=== PATIENT | female | born 1955 | race Caucasian/White ===

== ENCOUNTER 2018-08-08 18:27 | Inpatient (IN) | payer OTHER ==
[~2018-08-08] VITALS: Ht 170.2 cm; Wt 74.0 kg
[2018-08-08 18:58] LABS: APPEARANCE,URINE Clear (CLEAR); BILIRUBIN,URINE Moderate (NEGATIVE); COLOR,URINE Dark Yellow (YELLOW); GLUCOSE, URINE (UA) Negative (NEGATIVE); KETONES,URINE Negative (NEGATIVE); LEUKOCYTE ESTERASE ,URINE Trace (NEGATIVE); NITRATE,URINE Negative (NEGATIVE); OCCULT BLOOD,URINE Negative (NEGATIVE); PH,URINE 5.5 (5.0-8.0); PROTEIN,URINE Negative (NEGATIVE)
[2018-08-08 18:59] LABS: BASOPHILS % (AUTO) 0.8 % (0.0-5.0); EOSINOPHILS % (AUTO) 1.2 % (0.0-8.0); HEMATOCRIT 35.4 % (36-48); LYMPHOCYTES % (AUTO) 54.5 % (21.0-51.0); MEAN CORPUSCULAR HEMOGLOBIN 34.2 pg (27.0-33.0); MEAN CORPUSCULAR HGB CONC 34.1 g/dL (32.0-36.0); MEAN CORPUSCULAR VOLUME 100.5 fL (79-99); MONOCYTES % (AUTO) 6.2 % (3.0-13.0); NEUTROPHILS % (AUTO) 37.3 % (40.0-77.0); NUCLEATED RED BLOOD CELLS 0.1 % (0.0-0.19); PLATELET COUNT (AUTO) 173 K/uL (130-400); RED BLOOD CELL COUNT(AUTO) 3.52 MIL/uL (4.00-5.50); RED CELL DISTRIBUTION WIDTH 16.4 % (11.0-15.5); WHITE BLOOD COUNT (AUTO) 7.2 K/uL (4.8-10.8)
[2018-08-08] MEDS ORDERED: ONDANSETRON HCL 4 MG/2 ML VIAL ONE (19:16)
[2018-08-08] MEDS ORDERED: MORPHINE SULFATE 4 MG/1ML SYG ONE ×2 (19:16→19:39)
[2018-08-08 19:21] LABS: CREATININE 0.8 mg/dL (0.5-1.5); POTASSIUM 3.4 mmol/L (3.5-5.1)
[2018-08-08 19:22] LABS: AMYLASE 14 U/L (25-115); LIPASE 165 U/L (114-286)
[2018-08-08 19:23] LABS: INR 1.28 (0.85-1.15); PARTIAL THROMBOPLASTIN TIME 31.5 SEC (26.3-35.5); PROTHROMBIN TIME 13.4 SEC (9.6-11.6)
[2018-08-08 19:26] LABS: ALBUMIN 2.9 g/dL (3.5-5.0); BILIRUBIN,TOTAL 4.5 mg/dL (0.2-1.0); TOTAL PROTEIN, SERUM 7.6 g/dL (6.0-8.3)
[2018-08-08 20:13] LABS: BACTERIA,URINE Moderate /HPF (None Seen); RBC,URINE None Seen /HPF (0-1)
[2018-08-08] MEDS ORDERED: CEFTRIAXONE SODIUM 1 GM ONE (20:14)
[2018-08-08] MEDS ORDERED: FUROSEMIDE 10 MG/ML 2ML VIAL ONE (20:42)
[2018-08-08 21:18] LABS: BASOPHILS % (MANUAL) 1 % (0-2); EOSINOPHILS % (MANUAL) 1 % (1-6); LYMPHOCYTES % (MANUAL) 20 % (22-44); MONOCYTES % (MANUAL) 10 % (2-9); REACTIVE LYMPHOCYTES 4 % (0-0); SEGMENTED NEUTROPHILS % 64 % (40-70)
[2018-08-08 21:19] LABS: MAN.DIFF COMMENT-IMPRESSION MANUAL DIFFERENTIAL; PLATELET MORPHOLOGY COMMENT ADEQUATE
[2018-08-08] MEDS: FUROSEMIDE 10 MG/ML 2ML VIAL IVP SCH (21:30)
[2018-08-08] MEDS ORDERED: MORPHINE SULFATE 2 MG/ML 1ML SYG ONE (22:33)
[2018-08-09 01:30] VITALS: BP 111/67
[2018-08-09] MEDS ORDERED: SUCR1TAB2 PO (02:06)
[2018-08-09] MEDS ORDERED: CYAN250010 PO (02:06)
[2018-08-09] MEDS ORDERED: MILK500C PO (02:06)
[2018-08-09] MEDS ORDERED: HYOS-28 PO (02:06)
[2018-08-09] MEDS ORDERED: TRAZ-185 PO (02:06)
[2018-08-09] MEDS: MORPHINE SULFATE 2 MG/ML 1ML SYG IVP PRN ×3 (02:55→11:59)
[2018-08-09 04:00] VITALS: BP 113/72
[2018-08-09 08:00] VITALS: BP 107/50
[2018-08-09] MEDS ORDERED: ALBUMIN (HUMAN) 25% 200 ML IV SCH (10:00)
[2018-08-09] MEDS: CEFTRIAXONE SODIUM 1 GM IVP SCH (10:10)
[2018-08-09] MEDS: FUROSEMIDE 10 MG/ML 2ML VIAL IVP SCH ×2 (10:10→20:12)
[2018-08-09 10:40] LABS: INR 1.27 (0.85-1.15); PROTHROMBIN TIME 13.3 SEC (9.6-11.6)
[2018-08-09] MEDS ORDERED: LIDOCAINE HCL 1% 20 ML VIAL ONE (11:19)
--- NOTE | 2018-08-09 11:30 | NUR ---
NOTE PARACENTESIS PT WAS BROUGHT FOR A PARACENTESIS. RIGHT LATERAL ABDOMINAL AREA HAS BEEN DRAPED USING STERILE PROCEDURE. DR WEST THEN PROCEEDED IN INSERTING A 5FRENCH CATHETER USING STERILE TECHNIQUE. CLOUDY YELLOW FLUID DRAINING TO CANISTER, WITH A TOTAL OF 1150CC WAS REMOVED. PT TOLERATED WELL, NO COMPLAINS OF PAIN TO SITE AT THIS TIME. PUNCTURE SITE WAS COVERED WITH 4X4 AND OPSITE. PT WAS THEN SENT TO HER ROOM VIA WHEELCHAIR. Addendum: 08/09/18 at 1404 by MILDRED BRUMFIELD RN RN FLUID SPECIMEN HAS BEEN SENT TO LAB FOR C/S, CELL COUNT AND CYTOLOGY.
[2018-08-09] MEDS ORDERED: HYDROMORPHONE 4MG/ML 1ML VIAL IVP PRN (14:15)
[2018-08-09] MEDS ORDERED: ZOLPIDEM TARTRATE 5 MG TAB PO PRN (14:30)
--- NOTE | 2018-08-09 14:37 | NUR ---
INITIAL: Met with pt this afternoon to discuss dcp. Pt states that she lives w her spouse. She is an [place] citizen and states lives 6months in [facility], 3months in [facility] and 3 months in [place]. Pt states that she is independent w ambulation and ADLs. She does not have any DME or services. Pt pt she feels safe and comfortable to return home at al. Addendum: 08/09/18 at 1446 by JOSE HERNANDEZ Amended: Links added.
[2018-08-09] MEDS: HYDROMORPHONE HCL 2 MG/ML VIAL IVP PRN ×2 (14:46→20:16)
[2018-08-09 14:52] LABS: ALBUMIN,BODY FLUID 0.6 g/dL
[2018-08-09 15:37] LABS: APPEARANCE BODY FLUID CLEAR (CLEAR); COLOR,BODY FLUID YELLOW (LT YELLOW); SPECIMENTYPE,BODY FLUID ASCITES; TOTAL VOLUME,BODY FLUID 1150 mL
[2018-08-09 15:38] LABS: BODY FLUID RBC 270 /cu. mm.; BODY FLUID WBC 133 /cu. mm.
[2018-08-09 16:00] VITALS: BP 101/60
[2018-08-09 16:32] LABS: BF LYMPHOCYTE 54 %; BF MONOCYTE 18 %; BF OTHER CELLS 1
--- NOTE | 2018-08-09 18:42 | NUR ---
fall as walking our of room 318, jose maria Hare walked into room 315 because restroom emergency light was on. patient found face down, right side. pt denies any shortness of breath and/or pain to site. MD Arevalo notified. ordered hip xray. vitals are 118/63, 82 HR, 93% on 4L, afebrile 98.6 Addendum: 08/09/18 at 1850 by GALINA BRUSH RN RN pt states that she slipped while walking out of the restroom on the lip of the door panel. states socks are very slippery
[2018-08-09 20:00] VITALS: BP 110/61
--- NOTE | 2018-08-09 20:00 | NUR ---
ASSESS SHIFT ASSESSMENT DONE, PLEASE REFER TO CHART. PT CLAIMS OF ABDOMINAL PAINS. DUE MEDS ADMINISTERED, TOLERATED WELL, DILAUDID IV GIVEN FOR PAINS. RE-ITERATED FALL PRECAUTIONS. PT VERBALIZES UNDERSTANDING. CALL LIGHT WITHIN REACH. WILL MONITOR CLOSELY. Addendum: 08/10/18 at 0234 by NATALY COBOS RN RN Amended: Links added.
[2018-08-10] VITALS (16 sets, daily range): BP systolic 94–130; BP diastolic 54–91
--- NOTE | 2018-08-10 02:00 | NUR ---
ROUNDS PT FAIRLY ASLEEP WITH RESPIRATIONS EVEN AND UNLABORED. NO NOTED DISTRESS. KEPT UNDISTURBED FOR NOW. WILL CONTINUE TO MONITOR.
[2018-08-10] MEDS: HYDROMORPHONE HCL 2 MG/ML VIAL IVP PRN ×4 (06:40→22:07)
--- NOTE | 2018-08-10 06:40 | NUR ---
PAIN PT CALLS FOR PAIN MEDICATION. CLAIMS OF ABDOMINAL PAINS. MEDICATED WITH DILAUDID IV. RE-ITERATED FALL PRECAUTIONS. CALL LIGHT WITHIN REACH. WILL RE-ASSESS PT. FOR MORE CARE.
[2018-08-10] MEDS ORDERED: POTASSIUM CHLORIDE 10% ELIXIR 20 MEQ/15 ML UDCUP PO PRN (07:45)
[2018-08-10] MEDS ORDERED: ONDANSETRON HCL 4 MG/2 ML VIAL ONE ×2 (07:58→09:54)
[2018-08-10] MEDS ORDERED: ONDANSETRON HCL MDV 20ML 2 MG/ML VIAL IVP PRN (08:00)
[2018-08-10] MEDS: CEFTRIAXONE SODIUM 1 GM IVP SCH (08:02)
[2018-08-10] MEDS: FUROSEMIDE 10 MG/ML 2ML VIAL IVP SCH ×2 (08:05→20:09)
[2018-08-10 08:19] LABS: CREATININE 0.8 mg/dL (0.5-1.5); MAGNESIUM 1.4 mg/dL (1.80-2.40)
[2018-08-10 08:29] LABS: HEMATOCRIT 31.7 % (36-48); MEAN CORPUSCULAR HEMOGLOBIN 35.3 pg (27.0-33.0); MEAN CORPUSCULAR HGB CONC 35.1 g/dL (32.0-36.0); MEAN CORPUSCULAR VOLUME 100.4 fL (79-99); NUCLEATED RED BLOOD CELLS 0.1 % (0.0-0.19); PLATELET COUNT (AUTO) 138 K/uL (130-400); RED BLOOD CELL COUNT(AUTO) 3.16 MIL/uL (4.00-5.50); RED CELL DISTRIBUTION WIDTH 16.2 % (11.0-15.5); WHITE BLOOD COUNT (AUTO) 6.5 K/uL (4.8-10.8)
[2018-08-10] MEDS: PANTOPRAZOLE 40 MG/VIAL IVP SCH (08:39)
[2018-08-10] MEDS ORDERED: PANTOPRAZOLE SODIUM 40 MG TABLET.DR PO SCH (09:00)
[2018-08-10 09:09] LABS: EOSINOPHILS % (MANUAL) 5 % (1-6); LYMPHOCYTES % (MANUAL) 46 % (22-44); MAN.DIFF COMMENT-IMPRESSION MANUAL DIFFERENTIAL; MONOCYTES % (MANUAL) 9 % (2-9); PLATELET MORPHOLOGY COMMENT ADEQUATE; SEGMENTED NEUTROPHILS % 40 % (40-70)
[2018-08-10] MEDS: POTASSIUM CHLORIDE 20MEQ/100ML 100 ML IV PRN ×3 (09:57→22:07)
[2018-08-10] MEDS ORDERED: MIDAZOLAM HCL 1 MG/ML 2ML VIAL ONE ×2 (10:42→10:51)
[2018-08-10] MEDS ORDERED: MEPERIDINE-PF 50 MG/ML SYG ONE (10:42)
[2018-08-10] MEDS: ONDANSETRON HCL 4 MG/2 ML VIAL IVP PRN ×2 (13:36→18:16)
[2018-08-10] MEDS: MAGNESIUM 2GM PREMIX 50ML 50 ML IV PRN (20:10)
[2018-08-10] MEDS: LIDOCAINE HCL-MPF 1% 2ML VIAL IVP PRN (22:07)
--- NOTE | 2018-08-10 22:07 | NUR ---
N/V PT AWAKENED AND ASKED TO USE BSC. PCP IN TO ASSIST PT. PT STARTED HAVING DRY HEAVING SOON SHE SHE GOT OUT OF BED. PT USED BSC THEN ASSISTED BACK TO BED. PT COMPLAINTS OF ABDOMINAL PAINS AND IS STILL HAVING DRY HEAVES. MEDICATED WITH DILAUDID IV. KEPT COMFORTABLE IN BED WITH HOB ELEVATED. MAGNESIUM IV COMPLETED. STARTED IV POTASSIUM INFUSION PT UNABLE TO TAKE PO AT THIS TIME. WILL RE-ASSESS PT.
[2018-08-11] VITALS (7 sets, daily range): BP systolic 115–133; BP diastolic 52–84
[2018-08-11] MEDS: ONDANSETRON HCL 4 MG/2 ML VIAL IVP PRN ×3 (01:43→19:48)
--- NOTE | 2018-08-11 01:45 | NUR ---
N/V PT STARTED TO HAVE DRY HEAVING AGAIN. CLAIMS OF ABDOMINAL CRAMPING. MEDICATED WITH ZOFRAN IV. ASSISTED TO THE BSC AND NOTED TO BE VERY WEAK. RE-ITERATED ON FALL PRECAUTIONS. PT VERBALIZES UNDERSTANDING. WILL RE-ASSESS PT.
[2018-08-11] MEDS: HYDROMORPHONE HCL 2 MG/ML VIAL IVP PRN ×5 (02:26→23:47)
[2018-08-11 05:57] LABS: ALBUMIN 2.7 g/dL (3.5-5.0); BILIRUBIN,TOTAL 3.3 mg/dL (0.2-1.0); CREATININE 0.7 mg/dL (0.5-1.5); MAGNESIUM 1.8 mg/dL (1.80-2.40); POTASSIUM 3.4 mmol/L (3.5-5.1); TOTAL PROTEIN, SERUM 7.5 g/dL (6.0-8.3)
[2018-08-11] MEDS: MAGNESIUM 2GM PREMIX 50ML 50 ML IV PRN (06:40)
--- NOTE | 2018-08-11 07:57 | NUR ---
PAGED PT STILL HAVING DRY HEAVING WHEN AWAKE AND IS UP IN BED. PT ASKED IF MD WILL MAKE ROUND TODAY SINCE ACCORDING TO HER SHE HAS NOT SEEN HER PRIMARY MD YET. PAGED DR NUNEZ VIA ANSWERING SERVICE. AWAITING CALL BACK. ENDORSED TO AM SHIFT FOR MORE CARE AND MANAGEMENT.
--- NOTE | 2018-08-11 08:45 | NUR ---
DR. NUNEZ HERE TO SEE PATIENT. INFORMED THAT PATIENT WAS STILL NAUSEA DRY HEAVING. NEW ORDERS ENTERED.
[2018-08-11] MEDS ORDERED: ONDANSETRON HCL MDV 20ML 2 MG/ML VIAL IVP PRN (09:30)
[2018-08-11] MEDS: PANTOPRAZOLE 40 MG/VIAL IVP SCH (10:25)
[2018-08-11] MEDS: CEFTRIAXONE SODIUM 1 GM IVP SCH (10:25)
[2018-08-11] MEDS: FUROSEMIDE 10 MG/ML 2ML VIAL IVP SCH ×2 (10:26→19:49)
[2018-08-11] MEDS: POTASSIUM CHLORIDE 20MEQ/100ML 100 ML IV PRN (10:40)
[2018-08-11] MEDS: LIDOCAINE HCL-MPF 1% 2ML VIAL IVP PRN (10:41)
--- NOTE | 2018-08-11 11:16 | NUR ---
DR. BRADSHAW HERE TO SEE PATIENT. NEW ORDERS FOR ULTRASOUND GIVEN. INFORMED PATIENT
[2018-08-11] MEDS ORDERED: BISACODYL 10 MG SUPP.RECT RC PRN (11:45)
--- NOTE | 2018-08-11 15:00 | NUR ---
NOTIFIED DR. NUNEZ REGARDING PATIENT WAS STILL WITH NAUSEA. MADE AWARE OF DR. HAJI RECOMMENDATIONS. AWAITING CALL BACK FOR PATIENT TO HAVE IV FLUIDS FOR HYDRATION AND FURTHER ORDERS/
--- NOTE | 2018-08-11 15:15 | NUR ---
RD Notification Patient on clear liquid diet with nausea and vomiting upon visit. Patient received nausea medication as per EMR. Pending U/S as per patient. Patient with request of Korean ice at meal times. Pending diet education for new onset cirrhosis d/t patient with nausea and vomiting upon visit. Patient LBM 08/10/18. Patient monitored labs: K 43.4, Cl 98, BUN 4, CO2 34, Glu 107, T.Bili 3.3, AST 44, Alb 2.7. RD to continue to monitor. Please notify RD as nutritional concerns arise. Thank you. Addendum: 08/11/18 at [address] Amended: Links added.
[2018-08-11] MEDS: SENNOSIDES 8.6 MG TABLET PO SCH (19:49)
--- NOTE | 2018-08-11 19:50 | NUR ---
ASSESS SHIFT ASSESSMENT DONE, PLEASE REFER TO CHART. PT COMPLAINTS OF ABDOMINAL PAINS AND NAUSEA. DUE MEDS ADMINISTERED AND DILAUDID AND ZOFRAN IV GIVEN FOR NAUSEA AND PAINS. KEPT RESTED AND COMFORTABLE IN BED. CALL LIGHT WITHIN REACH. WILL RE-ASSESS PT. Addendum: 08/12/18 at 0122 by NATALY COBOS RN RN Amended: Links added.
--- NOTE | 2018-08-11 23:35 | NUR ---
PT COMPLAINTS OF ABDOMINAL PAINS, NAUSEA WITH DRY HEAVING AND GENERALIZED ITCHING. PAGED DR NUNEZ VIA ANSWERING SERVICE. WAS ABLE TO ANSWER BACK AND REFERRED PT'S CONDITION. NEW MED ORDERS GIVEN,PLEASE REFER TO CPOE. . WILL MEDICATE PT.
[2018-08-11] MEDS ORDERED: METOCLOPRAMIDE 10 MG/2 ML VIAL ONE (23:40)
[2018-08-11] MEDS ORDERED: DiphenhydrAMINE HCL 50 MG/ML VIAL ONE (23:40)
[2018-08-11] MEDS ORDERED: DiphenhydrAMINE HCL 50 MG/ML VIAL IV PRN (23:45)
[2018-08-11] MEDS ORDERED: METOCLOPRAMIDE 10 MG/2 ML VIAL IVP SCH (23:45)
[2018-08-11] MEDS: METOCLOPRAMIDE 10 MG/2 ML VIAL IVP SCH (23:50)
--- NOTE | 2018-08-12 02:00 | NUR ---
ROUNDS PT RESTING WELL, FAIRLY ASLEEP WITH RESPIRATIONS EVEN AND UNLABORED. NO NOTED DISTRESS. KEPT UNDISTURBED FOR NOW. WILL MONITOR CLOSELY.
[2018-08-12 03:05] VITALS: BP 114/55
[2018-08-12 05:02] LABS: HEMATOCRIT 30.7 % (36-48); MEAN CORPUSCULAR HEMOGLOBIN 34.4 pg (27.0-33.0); MEAN CORPUSCULAR HGB CONC 34.7 g/dL (32.0-36.0); NUCLEATED RED BLOOD CELLS 0.1 % (0.0-0.19); PLATELET COUNT (AUTO) 148 K/uL (130-400); RED CELL DISTRIBUTION WIDTH 15.5 % (11.0-15.5); WHITE BLOOD COUNT (AUTO) 15.4 K/uL (4.8-10.8)
[2018-08-12] MEDS: METOCLOPRAMIDE 10 MG/2 ML VIAL IVP SCH ×4 (05:29→23:33)
[2018-08-12 05:30] LABS: ALBUMIN 2.7 g/dL (3.5-5.0); BILIRUBIN,TOTAL 3.6 mg/dL (0.2-1.0); CREATININE 0.7 mg/dL (0.5-1.5); MAGNESIUM 1.5 mg/dL (1.80-2.40); POTASSIUM 3.3 mmol/L (3.5-5.1); TOTAL PROTEIN, SERUM 6.9 g/dL (6.0-8.3)
[2018-08-12] MEDS: POTASSIUM CHLORIDE 20 MEQ ERTAB PO PRN (05:40)
[2018-08-12] MEDS: MAGNESIUM 2GM PREMIX 50ML 50 ML IV PRN (05:40)
--- NOTE | 2018-08-12 05:40 | NUR ---
KCL/MG PT'S LAB RESULTS IN AND STILL WITH LOW POTASSIUM AND MAGNESIUM. STARTED ON MG INFUSION IV AND PO POTASSIUM. KEPT RESTED IN BED. CALL LIGHT WITHIN REACH. REITERATED FALL PRECAUTIONS. FOR MORE CARE.
[2018-08-12 08:06] VITALS: BP 111/63
[2018-08-12 08:17] LABS: HEPATITIS A ANTIBODY IGM Negative (Negative); HEPATITIS B CORE IGM Negative (Negative)
[2018-08-12] MEDS: PANTOPRAZOLE 40 MG/VIAL IVP SCH (09:23)
[2018-08-12] MEDS: FUROSEMIDE 10 MG/ML 2ML VIAL IVP SCH ×2 (09:23→20:43)
[2018-08-12] MEDS: CEFTRIAXONE SODIUM 1 GM IVP SCH (09:23)
[2018-08-12 12:00] VITALS: BP 123/65
[2018-08-12] MEDS: LIDOCAINE HCL-MPF 1% 2ML VIAL IVP PRN (12:05)
[2018-08-12] MEDS: POTASSIUM CHLORIDE 20MEQ/100ML 100 ML IV PRN (12:06)
[2018-08-12] MEDS: ONDANSETRON HCL 4 MG/2 ML VIAL IVP PRN (12:08)
--- NOTE | 2018-08-12 14:57 | NUR ---
DR. NUNEZ HAD NOT ROUNDED AND PATIENT MADE AWARE.
[2018-08-12 16:16] VITALS: BP 108/54
--- NOTE | 2018-08-12 17:30 | NUR ---
AMBULATION/OXYGENATION PT O2 HAS BEEN LOW TODAY. PRIMARY NURSE ENCOURAGING PT TO BE UP MORE AND WEAING O2. CM WILL FOLLOW NEEDED . PT STATES THAT WOULD BE WILLING TO GO TO SNF FOR PT IF NEEDED. PT WALKING FREELY W SPOUSE, NO MOBILITY DEFICITS NEEDED
[2018-08-12 19:30] VITALS: BP 102/52
[2018-08-12] MEDS: SENNOSIDES 8.6 MG TABLET PO SCH (20:43)
--- NOTE | 2018-08-12 20:43 | NUR ---
MEDS PT REFUSED SENNA DOSE TONIGHT SHE CLAIMS SHE HAD BEEN HAVING DIARRHEA DURING THE DAY. DUE LASIX DOSE ADMINISTERED. PCP MADE AWARE THAT PT HAD BEEN GIVEN DIURETICS TO ASSIST PT TO THE RESTROOM OR BSC WHEN NEEDED.
[2018-08-12 23:00] VITALS: BP 108/57
--- NOTE | 2018-08-13 02:00 | NUR ---
ROUNDS PT FAIRLY ASLEEP WITH RESPIRATIONS EVEN AND UNLABORED. NO NOTED DISTRESS. KEPT UNDISTURBED FOR NOW.
[2018-08-13 03:00] VITALS: BP 99/67
[2018-08-13 05:18] LABS: HEPATITIS Bs ANTIGEN SCREEN P Negative (Negative)
[2018-08-13] MEDS: METOCLOPRAMIDE 10 MG/2 ML VIAL IVP SCH ×2 (05:26→12:23)
--- NOTE | 2018-08-13 05:38 | NUR ---
ROUNDS PT SLEPT AT INTERVALS. NO CONCERNS VERBALIZED AT THIS TIME. NO DISTRESS NOTED. FOR MORE CARE.
[2018-08-13 06:07] LABS: MAGNESIUM 1.8 mg/dL (1.80-2.40)
[2018-08-13] MEDS: LIDOCAINE HCL-MPF 1% 2ML VIAL IVP PRN (06:42)
[2018-08-13] MEDS: POTASSIUM CHLORIDE 20 MEQ ERTAB PO PRN (06:42)
[2018-08-13] MEDS: POTASSIUM CHLORIDE 20MEQ/100ML 100 ML IV PRN (06:42)
[2018-08-13 08:00] VITALS: BP 144/59
[2018-08-13] MEDS: PANTOPRAZOLE 40 MG/VIAL IVP SCH (09:00)
[2018-08-13] MEDS ORDERED: FAMOTIDINE/PF 20 MG/2 ML VIAL IV SCH (09:00)
[2018-08-13] MEDS: CEFTRIAXONE SODIUM 1 GM IVP SCH (09:49)
[2018-08-13] MEDS: FUROSEMIDE 10 MG/ML 2ML VIAL IVP SCH (09:50)
[2018-08-13 12:00] VITALS: BP 95/63
[2018-08-13 16:00] VITALS: BP 114/73
--- NOTE | 2018-08-13 17:15 | NUR ---
DISCHARGE PATIENT GIVEN DISCHARGE INSTRUCTIONS VIA TEACH BACK. PATIENT TO FOLLOW UP WITH DR. NUNEZ TOMORROW AT 1100 INSTEAD OF 08/28/18. 20G PIV TO LEFT HAND DISCONTINUED, TIP INTACT. NO RX GIVEN. PATIENT STABLE AT THIS TIME.
== END 2018-08-13 17:00 | disposition home or self-care (01) | DRG 441 ==
LOC: EDH 18:27 → EDHIP 20:03 → 3CH 08-09 01:30
PROVIDERS: ADMIT Internal Medicine; ATTEND Internal Medicine
PROC: 0W9G3ZZ Drainage of Peritoneal Cavity, Percutaneous Approach (ICD-10-PCS; principal; 2018-08-10)
PROC: 0DJ08ZZ Inspection of Upper Intestinal Tract, Via Natural or Artificial Opening Endoscopic (ICD-10-PCS; 2018-08-10)
DX: K72.00 Acute and subacute hepatic failure without coma (principal); J96.91 Respiratory failure, unspecified with hypoxia; K65.9 Peritonitis, unspecified; K56.609 Unspecified intestinal obstruction, unspecified as to partial versus complete obstruction; R18.8 Other ascites; I85.10 Secondary esophageal varices without bleeding; K76.6 Portal hypertension; J81.1 Chronic pulmonary edema; K74.60 Unspecified cirrhosis of liver; K29.00 Acute gastritis without bleeding; K72.10 Chronic hepatic failure without coma; Z90.81 Acquired absence of spleen; K31.89 Other diseases of stomach and duodenum; M19.90 Unspecified osteoarthritis, unspecified site; E87.70 Fluid overload, unspecified; E87.6 Hypokalemia; E83.42 Hypomagnesemia; K76.0 Fatty (change of) liver, not elsewhere classified; Z86.010 Personal history of colon polyps; Z90.49 Acquired absence of other specified parts of digestive tract; Z90.710 Acquired absence of both cervix and uterus; Z86.73 Personal history of transient ischemic attack (TIA), and cerebral infarction without residual deficits
CPT/HCPCS: 36415; 43235; 49083; 71045; 73521; 74018; 74176; 80048; 80053; 80074; 81001; 82040; 82042; 82150; 82172; 82247; 82977; 83010; 83516; 83690; 83735; 83883; 84132; 84157; 84460; 84484; 85025; 85027; 85610; 85730; 86706; 86717; 87071; 87205; 87340; 87350; 87520; 88108; 88305; 89051; 93005; 99152; 99153; C9113; G0378; J0696; J1170; J1200; J1940; J2175; J2250; J2270; J2405; J2765; J3475; J3480; J3490; P9046

== ENCOUNTER 2018-08-21 18:30 | Inpatient (IN) | payer OTHER ==
[~2018-08-21] VITALS: Ht 170.2 cm; Wt 60.2 kg
[~2018-08-21 18:30] MED LIST: CYAN250010 PO; ETOMIDATE 2 MG/ML 10 ML VIAL IVP ONE; HYOS-28 PO; MILK500C PO; ROCURONIUM BROMIDE 10MG/1ML 5ML VL IV ONE; SUCR1TAB2 PO; TRAZ-185 PO
[2018-08-21 19:32] LABS: EOSINOPHILS % (AUTO) 0.2 % (0.0-8.0); HEMATOCRIT 35.1 % (36-48); LYMPHOCYTES % (AUTO) 7.6 % (21.0-51.0); MEAN CORPUSCULAR HEMOGLOBIN 33.9 pg (27.0-33.0); MEAN CORPUSCULAR HGB CONC 34.2 g/dL (32.0-36.0); MONOCYTES % (AUTO) 19.7 % (3.0-13.0); NEUTROPHILS % (AUTO) 69.5 % (40.0-77.0); PLATELET COUNT (AUTO) 150 K/uL (130-400); RED BLOOD CELL COUNT(AUTO) 3.55 MIL/uL (4.00-5.50); RED CELL DISTRIBUTION WIDTH 16.1 % (11.0-15.5); WHITE BLOOD COUNT (AUTO) 17.4 K/uL (4.8-10.8)
[2018-08-21] MEDS ORDERED: ONDANSETRON HCL 4 MG/2 ML VIAL ONE (19:32)
[2018-08-21] MEDS ORDERED: MORPHINE SULFATE 4 MG/1ML SYG ONE (19:33)
[2018-08-21 19:42] LABS: CARBON DIOXIDE 34 mmol/L (21-32); CHLORIDE 93 mmol/L (101-111); CREATININE 0.9 mg/dL (0.5-1.5); GLOMERULAR FILTR. RATE CALC 68 mL/min (>60); GLUCOSE,RANDOM 129 mg/dL (70-105); POTASSIUM 3.1 mmol/L (3.5-5.1); SODIUM SERUM 134 mmol/L (136-145); UREA NITROGEN, BLOOD 13 mg/dL (7-18)
[2018-08-21 19:44] LABS: INR 1.52 (0.85-1.15); PARTIAL THROMBOPLASTIN TIME 29.6 SEC (26.3-35.5); PROTHROMBIN TIME 15.8 SEC (9.6-11.6)
[2018-08-21 19:46] LABS: ALANINE AMINOTRANSFERASE 18 U/L (12-78); ALBUMIN 2.7 g/dL (3.5-5.0); AMYLASE 28 U/L (25-115); ASPARTATE AMINOTRANSFERASE 57 U/L (10-37); BILIRUBIN,TOTAL 5.5 mg/dL (0.2-1.0); LIPASE 362 U/L (114-286); TOTAL PROTEIN, SERUM 7.2 g/dL (6.0-8.3)
[2018-08-21 20:24] LABS: CREATINE KINASE, TOTAL 33 U/L (21-232); MYOGLOBIN 21 ng/mL (10-92); TROPONIN I < 0.04 ng/mL (0.00-0.06)
[2018-08-21] MEDS ORDERED: ALBUMIN (HUMAN) 25% 50 ML IV ONE (20:45)
[2018-08-21] MEDS ORDERED: MAGNESIUM OXIDE 400 MG TABLET PO ONE (20:50)
[2018-08-21] MEDS ORDERED: POTASSIUM CHLORIDE 20 MEQ ERTAB PO ONE (20:51)
[2018-08-21] MEDS ORDERED: MORPHINE SULFATE 2 MG/ML 1ML SYG ONE (20:51)
[2018-08-21 21:19] LABS: APPEARANCE,URINE Cloudy (CLEAR); BILIRUBIN,URINE Moderate (NEGATIVE); COLOR,URINE Dark Yellow (YELLOW); GLUCOSE, URINE (UA) Negative (NEGATIVE); KETONES,URINE Trace mg/dL (NEGATIVE); LEUKOCYTE ESTERASE ,URINE Trace (NEGATIVE); NITRATE,URINE Negative (NEGATIVE); OCCULT BLOOD,URINE Negative (NEGATIVE); PROTEIN,URINE Negative (NEGATIVE)
[2018-08-21 21:37] LABS: BACTERIA,URINE Many /HPF (None Seen); MUCUS,URINE Moderate LPF (None Seen); RBC,URINE None Seen /HPF (0-1); SQUAMOUS EPITHELIAL CELL,UR 0-2 /HPF (0-2); WBC,URINE 0-1 /HPF (0-1)
[2018-08-21] MEDS ORDERED: LACTULOSE 20 GM/30 ML UDCUP ONE (22:41)
[2018-08-21] MEDS ORDERED: LEVOFLOXACIN 500 MG/D5W 100 ML 100 ML ONE (22:42)
[2018-08-21] MEDS ORDERED: PANTOPRAZOLE SODIUM 40 MG TABLET.DR PO ONE (22:42)
[2018-08-21] MEDS ORDERED: FUROSEMIDE 10 MG/ML 2ML VIAL ONE (23:10)
[2018-08-21 23:24] LABS: ABG HCO3 30.7 mmol/L (21.0-28.0); ABG OXYGEN SATURATION 94.1 % (95.0-99.0); ABG PCO2 33 mmHg (32-45)
[2018-08-22] VITALS (12 sets, daily range): BP systolic 95–127; BP diastolic 40–66
[2018-08-22] MEDS ORDERED: ACETAMINOPHEN 325 MG TAB PO PRN (00:30)
[2018-08-22] MEDS: FUROSEMIDE 10 MG/ML 2ML VIAL IVP SCH (00:30)
[2018-08-22] MEDS ORDERED: FURO20TA4 PO (00:51)
[2018-08-22] MEDS ORDERED: LACT10SO PO (00:51)
[2018-08-22] MEDS ORDERED: SPIR50TA5 PO (00:51)
[2018-08-22] MEDS: SODIUM CHLORIDE 0.9% 1000ML 1,000 ML IV SCH ×2 (00:55→14:05)
[2018-08-22] MEDS: MORPHINE SULFATE 2 MG/ML 1ML SYG IVP PRN ×5 (00:55→18:41)
[2018-08-22] MEDS: IPRATROPIUM/ALBUTEROL SULFATE 3 ML SOLUTION IH SCH ×5 (01:47→22:00)
[2018-08-22] MEDS: ONDANSETRON HCL 4 MG/2 ML VIAL IVP PRN ×2 (09:38→18:40)
[2018-08-22] MEDS: PANTOPRAZOLE SODIUM 40 MG TABLET.DR PO SCH ×2 (09:39→21:16)
[2018-08-22] MEDS: LACTULOSE 20 GM/30 ML UDCUP PO SCH ×2 (09:39→21:16)
[2018-08-22] MEDS ORDERED: GADODIAMIDE 10 MMOL/20 ML VIAL IV ONE (11:11)
[2018-08-22] MEDS: AZTREONAM 2 GM VIAL IVP SCH ×2 (11:30→21:16)
[2018-08-22] MEDS ORDERED: LORAZEPAM 2 MG/ML 1 ML VIAL IVP PRN (12:30)
[2018-08-22] MEDS ORDERED: IOHEXOL-350 75 ML VIAL IV ONE (15:26)
--- NOTE | 2018-08-22 16:15 | NUR ---
U/S GD PARACENTESIS PROCEDURE PERFORMED BY DR Darwin BRASWELL. PUNCTURE SITE RLQ AND PATIENT TOLERATED PROCEDURE WELL. TOTAL REMOVED 2 LITERS OF CLOUDY YELLOW FLUID. END OF PROCEDURE AT 1600. CATHETER REMOVED AND DRESSING APPLIED. NO BLEEDING NOTED. REPORT GIVEN TO Puja VARGAS RN AND PATIENT TRANSPORTED TO [facility] VIA W/C AFTER CT CHEST PE PROTOCOL. AAO X3 WITH NO C/O PAIN. SPECIMEN SENT TO LAB.
[2018-08-22 16:59] LABS: ALBUMIN,BODY FLUID 0.6 g/dL
[2018-08-22 17:27] LABS: APPEARANCE BODY FLUID SLIGHTLY CLOUDY (CLEAR); COLOR,BODY FLUID YELLOW (LT YELLOW); SPECIMENTYPE,BODY FLUID ASCITES; TOTAL VOLUME,BODY FLUID 1700 mL
[2018-08-22 17:28] LABS: BODY FLUID RBC 200 /cu. mm.; BODY FLUID WBC 238 /cu. mm.
[2018-08-22 18:03] LABS: BF LYMPHOCYTE 22 %; BF MESOTHELIAL 4 %
[2018-08-22] MEDS: LEVOFLOXACIN 500 MG/D5W 100 ML 100 ML IV SCH (22:18)
[2018-08-23] MEDS: FUROSEMIDE 10 MG/ML 2ML VIAL IVP SCH (00:29)
[2018-08-23] MEDS: MORPHINE SULFATE 2 MG/ML 1ML SYG IVP PRN ×4 (00:34→18:38)
[2018-08-23 03:30] VITALS: BP 90/44
[2018-08-23] MEDS: AZTREONAM 2 GM VIAL IVP SCH ×3 (04:03→20:42)
[2018-08-23 04:29] LABS: BASOPHILS % (AUTO) 0.8 % (0.0-5.0); EOSINOPHILS % (AUTO) 2.1 % (0.0-8.0); HEMATOCRIT 29.2 % (36-48); LYMPHOCYTES % (AUTO) 24.7 % (21.0-51.0); MEAN CORPUSCULAR HEMOGLOBIN 34.3 pg (27.0-33.0); MEAN CORPUSCULAR HGB CONC 34.6 g/dL (32.0-36.0); MEAN CORPUSCULAR VOLUME 99.3 fL (79-99); MONOCYTES % (AUTO) 9.1 % (3.0-13.0); NEUTROPHILS % (AUTO) 63.3 % (40.0-77.0); NUCLEATED RED BLOOD CELLS 0.1 % (0.0-0.19); PLATELET COUNT (AUTO) 133 K/uL (130-400); RED BLOOD CELL COUNT(AUTO) 2.94 MIL/uL (4.00-5.50); RED CELL DISTRIBUTION WIDTH 16.2 % (11.0-15.5)
[2018-08-23 04:41] LABS: INR 1.51 (0.85-1.15); PARTIAL THROMBOPLASTIN TIME 32.7 SEC (26.3-35.5); PROTHROMBIN TIME 15.7 SEC (9.6-11.6)
[2018-08-23 04:48] LABS: B-TYPE NATRIURETIC PEPTIDE 48 pg/mL (0-100)
[2018-08-23 05:22] LABS: ALBUMIN 2.1 g/dL (3.5-5.0); BILIRUBIN,TOTAL 3.5 mg/dL (0.2-1.0); CREATININE 0.7 mg/dL (0.5-1.5); MAGNESIUM 1.8 mg/dL (1.80-2.40); PHOSPHORUS 2.8 mg/dL (2.5-4.9); TOTAL PROTEIN, SERUM 5.9 g/dL (6.0-8.3)
[2018-08-23] MEDS: POTASSIUM CHLORIDE 20 MEQ ERTAB PO PRN ×3 (06:39→17:42)
[2018-08-23] MEDS: LIDOCAINE HCL-MPF 1% 2ML VIAL IVP PRN (06:39)
[2018-08-23] MEDS: IPRATROPIUM/ALBUTEROL SULFATE 3 ML SOLUTION IH SCH ×3 (07:10→21:03)
[2018-08-23 08:00] VITALS: BP 136/64
[2018-08-23 08:21] LABS: HEPATITIS A ANTIBODY IGM Negative (Negative); HEPATITIS B CORE IGM Negative (Negative); HEPATITIS Bs ANTIGEN SCREEN P Negative (Negative)
[2018-08-23] MEDS: LACTULOSE 20 GM/30 ML UDCUP PO SCH ×2 (08:33→20:42)
[2018-08-23] MEDS: PANTOPRAZOLE SODIUM 40 MG TABLET.DR PO SCH ×2 (08:33→20:42)
[2018-08-23] MEDS: SODIUM CHLORIDE 0.9% 1000ML 1,000 ML IV SCH (08:34)
[2018-08-23 09:03] LABS: ABG BASE EXCESS 6.6 mmol/L (-2.0-3.0); ABG HCO3 30.3 mmol/L (21.0-28.0); ABG OXYGEN SATURATION 89.7 % (95.0-99.0); ABG PCO2 40 mmHg (32-45)
[2018-08-23] MEDS: FUROSEMIDE 10 MG/ML 4ML VIAL IV SCH (11:30)
[2018-08-23 12:09] VITALS: BP 105/62
[2018-08-23] MEDS: ONDANSETRON HCL 4 MG/2 ML VIAL IVP PRN (12:52)
--- NOTE | 2018-08-23 14:47 | NUR ---
DCP CM met with pt discussed dc plans. Pt is independent prior to admission, lives at home w/spouse, robert mena from [facility]. Pt states they stay in [facility] 6months, [facility] 3months, and [place] 3 months. Denies any equipments/services. Pt feels safe to go back home, still drives, spouse able to assist with transportation and needs as necessary. DC plan to home once stable. CM to cont to follow up. Addendum: 08/23/18 at 1448 by MARIKA TERESA LVN CM Amended: Links added.
[2018-08-23] MEDS ORDERED: HYDROXYZINE HCL 50 MG/ML 2 ML VIAL IM PRN (15:30)
[2018-08-23 16:00] VITALS: BP 99/55
[2018-08-23 19:30] VITALS: BP 106/64
[2018-08-23] MEDS: LEVOFLOXACIN 500 MG/D5W 100 ML 100 ML IV SCH (21:21)
[2018-08-23] MEDS: MAGNESIUM 2GM PREMIX 50ML 50 ML IV PRN (22:20)
[2018-08-23 23:15] VITALS: BP 93/51
[2018-08-24] VITALS (24 sets, daily range): BP systolic 89–127; BP diastolic 53–75
[2018-08-24] MEDS: FUROSEMIDE 10 MG/ML 4ML VIAL IV SCH ×2 (00:19→11:30)
[2018-08-24] MEDS: MORPHINE SULFATE 2 MG/ML 1ML SYG IVP PRN ×5 (00:34→21:49)
[2018-08-24] MEDS: AZTREONAM 2 GM VIAL IVP SCH ×3 (04:48→21:50)
[2018-08-24] MEDS: HYDROXYZINE HCL 25 MG TABLET PO PRN (05:34)
[2018-08-24 05:37] LABS: BASOPHILS % (AUTO) 0.3 % (0.0-5.0); EOSINOPHILS % (AUTO) 3.5 % (0.0-8.0); HEMATOCRIT 29.3 % (36-48); LYMPHOCYTES % (AUTO) 20.3 % (21.0-51.0); MEAN CORPUSCULAR HGB CONC 34.4 g/dL (32.0-36.0); MEAN CORPUSCULAR VOLUME 98.9 fL (79-99); MONOCYTES % (AUTO) 31.5 % (3.0-13.0); NEUTROPHILS % (AUTO) 44.4 % (40.0-77.0); PLATELET COUNT (AUTO) 151 K/uL (130-400); RED BLOOD CELL COUNT(AUTO) 2.96 MIL/uL (4.00-5.50); RED CELL DISTRIBUTION WIDTH 16.2 % (11.0-15.5); WHITE BLOOD COUNT (AUTO) 6.3 K/uL (4.8-10.8)
[2018-08-24 05:54] LABS: ALBUMIN 2.3 g/dL (3.5-5.0); BILIRUBIN,TOTAL 3.8 mg/dL (0.2-1.0); CREATININE 0.7 mg/dL (0.5-1.5); MAGNESIUM 1.9 mg/dL (1.80-2.40); PHOSPHORUS 3.1 mg/dL (2.5-4.9); POTASSIUM 3.2 mmol/L (3.5-5.1); TOTAL PROTEIN, SERUM 6.2 g/dL (6.0-8.3)
[2018-08-24] MEDS: IPRATROPIUM/ALBUTEROL SULFATE 3 ML SOLUTION IH SCH ×2 (06:00→22:06)
[2018-08-24] MEDS: POTASSIUM CHLORIDE 20 MEQ ERTAB PO PRN ×3 (06:48→21:46)
[2018-08-24] MEDS: LACTULOSE 20 GM/30 ML UDCUP PO SCH ×2 (09:00→21:00)
[2018-08-24] MEDS: SPIRONOLACTONE 25 MG TAB PO SCH (09:00)
[2018-08-24] MEDS: PANTOPRAZOLE SODIUM 40 MG TABLET.DR PO SCH (09:00)
[2018-08-24] MEDS ORDERED: PROPOFOL 10 MG/ML 20ML VIAL IV ONE (15:31)
[2018-08-24] MEDS: LIDOCAINE HCL 2% VISCOUS 15 ML UDCUP PO SCH ×2 (16:19→22:30)
[2018-08-24] MEDS ORDERED: PEG 3350/NA SULF,BICARB,CL/KCL 4000 ML SOLN PO ONE (18:30)
[2018-08-24] MEDS ORDERED: LACTULOSE 20 GM/30 ML UDCUP PO SCH (18:30)
[2018-08-24] MEDS ORDERED: MAGNESIUM CITRATE 296 ML SOLUTION PO ONE (18:30)
[2018-08-24] MEDS: LEVOFLOXACIN 500 MG/D5W 100 ML 100 ML IV SCH (21:53)
[2018-08-25] VITALS (17 sets, daily range): BP systolic 86–123; BP diastolic 45–83
[2018-08-25] MEDS: FUROSEMIDE 10 MG/ML 4ML VIAL IV SCH ×3 (03:54→22:41)
[2018-08-25] MEDS: AZTREONAM 2 GM VIAL IVP SCH ×3 (03:56→19:30)
[2018-08-25] MEDS: LIDOCAINE HCL 2% VISCOUS 15 ML UDCUP PO SCH ×4 (04:01→22:46)
[2018-08-25] MEDS: MORPHINE SULFATE 2 MG/ML 1ML SYG IVP PRN ×4 (04:09→22:47)
[2018-08-25 05:36] LABS: HEMATOCRIT 33.6 % (36-48); MEAN CORPUSCULAR HEMOGLOBIN 34.1 pg (27.0-33.0); MEAN CORPUSCULAR HGB CONC 34.2 g/dL (32.0-36.0); MEAN CORPUSCULAR VOLUME 99.9 fL (79-99); PLATELET COUNT (AUTO) 150 K/uL (130-400); RED BLOOD CELL COUNT(AUTO) 3.36 MIL/uL (4.00-5.50); RED CELL DISTRIBUTION WIDTH 16.5 % (11.0-15.5); WHITE BLOOD COUNT (AUTO) 6.9 K/uL (4.8-10.8)
[2018-08-25 06:04] LABS: ALBUMIN 2.7 g/dL (3.5-5.0); BILIRUBIN,TOTAL 4.1 mg/dL (0.2-1.0); CREATININE 0.8 mg/dL (0.5-1.5); MAGNESIUM 1.9 mg/dL (1.80-2.40); POTASSIUM 3.6 mmol/L (3.5-5.1); TOTAL PROTEIN, SERUM 7.5 g/dL (6.0-8.3)
[2018-08-25] MEDS: IPRATROPIUM/ALBUTEROL SULFATE 3 ML SOLUTION IH SCH ×3 (06:17→21:45)
[2018-08-25] MEDS: LACTULOSE 20 GM/30 ML UDCUP PO SCH ×2 (09:37→22:34)
[2018-08-25] MEDS: PANTOPRAZOLE SODIUM 40 MG TABLET.DR PO SCH (09:37)
[2018-08-25] MEDS: SPIRONOLACTONE 25 MG TAB PO SCH (09:38)
[2018-08-25] MEDS ORDERED: PROPOFOL 1000 MG/100 ML 100 ML IV ONE (19:51)
--- NOTE | 2018-08-25 21:10 | NUR ---
RETURN FROM PROCEDURE. PT BROUGHT BACK FROM ENDO, PT AWAKE, ALERT AND RESPONSIVE. NO C/O PAIN OR DISCOMFORT AT THIS TIME. NEW ORDERS RECEIVED FROM DR. PALOMO, REFER TO EMR. VS WNL FOR PT. Addendum: 08/25/18 at 2227 by RADHA ALFORD RN Amended: Links added.
[2018-08-25] MEDS ORDERED: MAGNESIUM CITRATE 296 ML SOLUTION PO ONE (22:15)
[2018-08-25] MEDS ORDERED: MAGNESIUM CITRATE 296 ML SOLUTION ONE (22:29)
[2018-08-25] MEDS: LEVOFLOXACIN 500 MG/D5W 100 ML 100 ML IV SCH (22:34)
[2018-08-25] MEDS: ONDANSETRON HCL 4 MG/2 ML VIAL IVP PRN (22:46)
[2018-08-25] MEDS: POTASSIUM CHLORIDE 20 MEQ ERTAB PO PRN (22:46)
[2018-08-26] VITALS (8 sets, daily range): BP systolic 96–124; BP diastolic 58–72
[2018-08-26] MEDS: AZTREONAM 2 GM VIAL IVP SCH ×3 (02:53→21:11)
[2018-08-26] MEDS: LIDOCAINE HCL 2% VISCOUS 15 ML UDCUP PO SCH ×2 (04:18→10:40)
[2018-08-26] MEDS: ONDANSETRON HCL 4 MG/2 ML VIAL IVP PRN (05:34)
[2018-08-26] MEDS: MORPHINE SULFATE 2 MG/ML 1ML SYG IVP PRN ×3 (05:35→21:14)
[2018-08-26] MEDS: IPRATROPIUM/ALBUTEROL SULFATE 3 ML SOLUTION IH SCH ×3 (07:23→21:35)
[2018-08-26] MEDS: SPIRONOLACTONE 25 MG TAB PO SCH (10:39)
[2018-08-26] MEDS: PANTOPRAZOLE SODIUM 40 MG TABLET.DR PO SCH (10:39)
[2018-08-26] MEDS: LACTULOSE 20 GM/30 ML UDCUP PO SCH ×2 (10:40→21:11)
[2018-08-26] MEDS: FUROSEMIDE 10 MG/ML 4ML VIAL IV SCH (11:00)
[2018-08-26] MEDS: LEVOFLOXACIN 500 MG/D5W 100 ML 100 ML IV SCH (21:11)
[2018-08-27] MEDS: FUROSEMIDE 10 MG/ML 4ML VIAL IV SCH ×3 (00:10→23:03)
[2018-08-27 04:00] VITALS: BP 107/62
[2018-08-27] MEDS: MORPHINE SULFATE 2 MG/ML 1ML SYG IVP PRN ×5 (04:01→23:12)
[2018-08-27] MEDS: AZTREONAM 2 GM VIAL IVP SCH ×3 (04:01→21:23)
[2018-08-27] MEDS: IPRATROPIUM/ALBUTEROL SULFATE 3 ML SOLUTION IH SCH ×3 (06:14→21:42)
[2018-08-27] MEDS: SPIRONOLACTONE 25 MG TAB PO SCH (07:56)
[2018-08-27] MEDS: PANTOPRAZOLE SODIUM 40 MG TABLET.DR PO SCH (07:56)
[2018-08-27] MEDS: LIDOCAINE HCL 2% VISCOUS 15 ML UDCUP PO PRN (07:56)
[2018-08-27] MEDS: LACTULOSE 20 GM/30 ML UDCUP PO SCH ×2 (07:57→21:23)
[2018-08-27 08:13] VITALS: BP 92/50
--- NOTE | 2018-08-27 10:17 | NUR ---
PAIN PT REPORTS PAIN LEVEL 10, MOANING, CRYING, DESCRIBES IT A SHARP CONSTANT PAIN, NOT RELIEVED BY MORPHINE. INFORMED DR PALOMO OF FINDINGS, RECEIVED ORDERS FOR XRAY OF ESOPHAGUS AND TRAMDOL, ORDERS NOTED AND CARRIED OUT, WILL CONTINUE TO MONITOR
[2018-08-27 11:42] VITALS: BP 109/63
[2018-08-27 16:32] VITALS: BP 103/69
--- NOTE | 2018-08-27 17:51 | NUR ---
RDSCREEN - LOS X 6 Upon visit patient reports poor PO intake due to pain in chest when swallowing. GI consulted as per RN. Rec to downgrade diet to full liquids. Patient reports resolved nausea with medication. RD was able to provide Cirrhosis Diet education to patient and spouse. Both verbalized understanding. Patient LBM 08/26/18. Patient monitored labs: Cl 98, BUN 6, Glu 109, T. Bili 4.1, AST 59, Alb 2.7. RD to continue to monitor. Please notify RD as nutritional concerns arise. Thank you. Addendum: 08/27/18 at [address] Amended: Links added.
--- NOTE | 2018-08-27 17:59 | NUR ---
Diet Education RD provided Cirrhosis Nutrition Therapy diet education. RD provided and reviewed reference materials and handouts with patient and spouse. Patient and spouse with pertinent questions. RD answered questions. Patient and spouse verbalized understanding. RD to follow-up. Addendum: 08/27/18 at [address] Amended: Links added.
[2018-08-27 19:25] VITALS: BP 98/58
[2018-08-27] MEDS: LEVOFLOXACIN 500 MG/D5W 100 ML 100 ML IV SCH (21:24)
[2018-08-27 23:14] VITALS: BP 100/58
[2018-08-28] MEDS: MORPHINE SULFATE 2 MG/ML 1ML SYG IVP PRN ×2 (03:11→07:15)
[2018-08-28] MEDS: ONDANSETRON HCL 4 MG/2 ML VIAL IVP PRN (03:16)
[2018-08-28 03:40] VITALS: BP 114/69
[2018-08-28] MEDS: AZTREONAM 2 GM VIAL IVP SCH ×3 (04:01→19:43)
[2018-08-28] MEDS: IPRATROPIUM/ALBUTEROL SULFATE 3 ML SOLUTION IH SCH ×3 (06:46→21:53)
[2018-08-28 07:40] VITALS: BP 101/62
[2018-08-28] MEDS: PANTOPRAZOLE SODIUM 40 MG TABLET.DR PO SCH (07:45)
[2018-08-28] MEDS: LACTULOSE 20 GM/30 ML UDCUP PO SCH ×2 (07:45→19:43)
[2018-08-28] MEDS: SPIRONOLACTONE 25 MG TAB PO SCH (07:45)
[2018-08-28 11:02] VITALS: BP 114/65
[2018-08-28] MEDS: FUROSEMIDE 10 MG/ML 4ML VIAL IV SCH ×2 (12:28→22:58)
[2018-08-28] MEDS: TRAMADOL HCL 50 MG TABLET PO PRN ×2 (12:29→17:40)
--- NOTE | 2018-08-28 16:07 | NUR ---
DOMINIC PLAN VISITED WITH PATIENT. ALBERTO SIGNED FOR HOME O2 ANY IN NETWORK. INFO SENT TO [facility] PATIENT. CM TO FOLLOW UP. Addendum: 08/28/18 at 1608 by ANI OLSON RN CM Amended: Links added.
[2018-08-28 16:22] VITALS: BP 104/52
[2018-08-28 19:30] VITALS: BP 103/63
[2018-08-28] MEDS: LEVOFLOXACIN 500 MG/D5W 100 ML 100 ML IV SCH (19:44)
--- NOTE | 2018-08-28 19:45 | NUR ---
md call patient had small bloody stool, no c/o pain, no sob, back to bed, called
--- NOTE | 2018-08-28 22:10 | NUR ---
bloody stools patient had small bloody stool with feces, no c/o pain or dizziness, back to bed, b/p 119/62, heart rate 72, resp 18 , temp 98.2 f,called lashaun patel, with orders
[2018-08-28 22:34] LABS: BASOPHILS % (AUTO) 4.4 % (0.0-5.0); EOSINOPHILS % (AUTO) 6.7 % (0.0-8.0); LYMPHOCYTES % (AUTO) 4.5 % (21.0-51.0); MEAN CORPUSCULAR HEMOGLOBIN 33.8 pg (27.0-33.0); MEAN CORPUSCULAR HGB CONC 34.2 g/dL (32.0-36.0); MEAN CORPUSCULAR VOLUME 98.9 fL (79-99); MONOCYTES % (AUTO) 16.9 % (3.0-13.0); NEUTROPHILS % (AUTO) 67.5 % (40.0-77.0); PLATELET COUNT (AUTO) 146 K/uL (130-400); RED BLOOD CELL COUNT(AUTO) 3.03 MIL/uL (4.00-5.50); RED CELL DISTRIBUTION WIDTH 16.3 % (11.0-15.5); WHITE BLOOD COUNT (AUTO) 6.3 K/uL (4.8-10.8)
[2018-08-28 23:31] VITALS: BP 110/61
[2018-08-29 04:00] VITALS: BP 104/62
[2018-08-29] MEDS: AZTREONAM 2 GM VIAL IVP SCH ×2 (04:23→13:00)
[2018-08-29] MEDS: IPRATROPIUM/ALBUTEROL SULFATE 3 ML SOLUTION IH SCH ×3 (07:04→22:05)
[2018-08-29 07:30] VITALS: BP 97/46
[2018-08-29] MEDS: SPIRONOLACTONE 25 MG TAB PO SCH (09:00)
[2018-08-29] MEDS: LACTULOSE 20 GM/30 ML UDCUP PO SCH ×2 (09:00→20:48)
--- NOTE | 2018-08-29 09:00 | NUR ---
BOWEL MOVEMENT VISUALLY ASSESSED BOWEL MOVEMENT AND APPEARS BRIGHT RED IN COLOR. PATIENT REPORTS FREQUENT LOOSE STOOLS THAT STARTED "SEVERAL DAYS AGO."
[2018-08-29] MEDS: HYDROXYZINE HCL 25 MG TABLET PO PRN ×2 (09:03→17:19)
[2018-08-29] MEDS: PANTOPRAZOLE SODIUM 40 MG TABLET.DR PO SCH (09:03)
--- NOTE | 2018-08-29 09:19 | NUR ---
NOT TOLERATING DIET PATIENT CURRENTLY ON SOFT DIET. PATIENT REPORTS SHE DID NOT EAT HER BREAKFAST AND STATES "I CAN'T EAT ANYTHING WITH TEXTURE. WHEN I EAT FOOD, MY STOMACH PAIN COMES BACK AND I FEEL LIKE I'M GOING TO THROW UP." I ASKED PATIENT IF SHE TOLERATED MILK OR SOUP BROTHS AND PATIENT REPLIED YES. PATIENT IS LAYING IN BED AND HOLDING HER ABDOMEN WITH HER ARMS AND LOOKS UNCOMFORTABLE. SPOKE TO PATIENT REGARDING PLACING HER ON A FULL LIQUID DIET AND PATIENT AGREED.
[2018-08-29 11:00] VITALS: BP 99/47
[2018-08-29] MEDS: FUROSEMIDE 10 MG/ML 4ML VIAL IV SCH ×2 (11:23→22:37)
--- NOTE | 2018-08-29 12:58 | NUR ---
DC PLAN CALLED [facility] PATIENT SEVERAL TIMES STILL NOT PROCESSED HAD QUESTIONS RE GARDING O2 TESTING. EXPLAINED THAT FI02 AT 40 % IS EQUAL TO 5 L OF 02. THERE IS SOME CONFUSION REGARDING NEED FOR HIGH 02. ASKED FOR RT TO RE TEST WITH 4L TO PROVE PATIENT NEEDS 5L. JUST IN CASE P NEEDS REPORT. PER REP SAID THEY WOULD NOT NEED THAT THEY COULD RETEST ONCE PATIENT IS AT HOME. Addendum: 08/29/18 at 1301 by ANI OLSON RN CM Amended: Links added.
--- NOTE | 2018-08-29 14:00 | NUR ---
DR. HARSHAD FARRELL HERE TO SEE PATIENT. PATIENT REPORTS ABDOMINAL PAIN STILL PRESENT, NOT TOLERATING FOOD. PATIENT REPORTS ONLY BEING ABLE TO DRINK SMALL ABOUT OF FULL LIQUID DIET AND RED COLORED LOOSE STOOLS STILL PRESENT.
[2018-08-29 16:00] VITALS: BP 99/47
[2018-08-29 20:00] VITALS: BP 109/59
[2018-08-29] MEDS: LEVOFLOXACIN 500 MG/D5W 100 ML 100 ML IV SCH (20:48)
[2018-08-30] VITALS (7 sets, daily range): BP systolic 92–106; BP diastolic 41–63
[2018-08-30] MEDS: HYDROXYZINE HCL 25 MG TABLET PO PRN ×2 (04:07→14:35)
[2018-08-30] MEDS: IPRATROPIUM/ALBUTEROL SULFATE 3 ML SOLUTION IH SCH ×3 (06:40→21:37)
[2018-08-30] MEDS: SPIRONOLACTONE 25 MG TAB PO SCH (08:21)
[2018-08-30] MEDS: LACTULOSE 20 GM/30 ML UDCUP PO SCH ×2 (09:00→21:00)
--- NOTE | 2018-08-30 09:00 | NUR ---
BOWEL MOVEMENT/DIET TOLERANCE VISUALLY ASSESSED BOWEL MOVEMENT, STOOL DOES APPEAR SLIGHTLY DARK RED IN COLOR BUT APPEARS TO BE DECREASED IN RED COLOR COMPARED TO YESTERDAYS BRIGHT RED STOOL COLOR. PATIENT REPORTS BARELY TOLERATING FULL LIQUID DIET, ONLY ABLE TO FINISH ONE FULL BOTTLE OF ENSURE SO FAR.
[2018-08-30] MEDS: PANTOPRAZOLE SODIUM 40 MG TABLET.DR PO SCH (10:46)
--- NOTE | 2018-08-30 14:58 | NUR ---
Nutrition f/u: Pt with diet change to full liquid diet. Pt not tolerating any foods with textures and hardly any liquids. Pt very cautious with how she eats and quantity she eats d/t pain. However pt and report improved po intake from yesterday to today. Pt working towards tolerating and wants to advance to soft textured foods. Recommendations: When medically feasible, advance diet therapy to GI soft diet- no raw items under comments. Consult REBECA as nutrition concerns arise. Addendum: 08/30/18 at [address] Amended: Links added.
[2018-08-30] MEDS: LEVOFLOXACIN 500 MG/D5W 100 ML 100 ML IV SCH (21:23)
[2018-08-30] MEDS: FUROSEMIDE 10 MG/ML 4ML VIAL IV SCH (21:24)
--- NOTE | 2018-08-30 21:30 | NUR ---
MEDS PT VERBALIZES OF HAVING LOOSE STOOLS TODAY BUT NOT BLOODY. CLAIMS OF ABDOMINAL PAINS, INTERMITTENT, MOSTLY WHEN TASKING ANYTHING PO. REFUSES TO TAKE TRAMADOL PO. PT CLAIMS OF FEELING DIZZY WITH MED. DUE MEDS ADMINISTERED, PT WANTED TO TAKE HER OWN LACTULOSE SHE CLAIMS THAT IT TASTES BETTER. OWN HOME MED TAKEN BY PT. ASSURED PT TO REFER PAIN MEDS TO MD OUTSIDE PHYSICAL DAMAGE APPRAISER.
--- NOTE | 2018-08-30 21:43 | NUR ---
PAGE PAGED AIR SAW OPERATOR DYE STAND LOADER FOR BENCHMARK. GLEN LEYVA,KALEE CALLED BACK AND REFERRED PT WANTING PAIN MEDS BESIDES TRAMADOL AND SLEEPING MEDICATION. NEW MED ORDERS GIVEN, PLEASE REFER TO CPOE. WILL MEDICATE PT.
[2018-08-30] MEDS ORDERED: MORPHINE SULFATE 2 MG/ML 1ML SYG ONE (21:53)
[2018-08-30] MEDS ORDERED: MORPHINE SULFATE 2 MG/ML 1ML SYG IVP PRN (22:00)
[2018-08-30] MEDS: ONDANSETRON HCL 4 MG/2 ML VIAL IVP PRN (22:07)
--- NOTE | 2018-08-30 22:10 | NUR ---
MEDS PT WAS MEDICATED ZOFRAN IV AFTER MORPHINE ADMINISTRATION SHE GOT NAUSEA AFTER PAIN MED. KEPT RESTED AND COMFORTABLE. CALL LIGHT WITHIN REACH. WILL RE-ASSESS PT.
[2018-08-31] MEDS: ALPRAZOLAM 0.25 MG TABLET PO PRN ×2 (01:45→21:49)
[2018-08-31] MEDS: LIDOCAINE HCL 2% VISCOUS 15 ML UDCUP PO PRN (01:45)
--- NOTE | 2018-08-31 01:45 | NUR ---
SLEEP PT CALLS FOR MEDICATION FOR SLEEP. XANAX PO GIVEN AND LIDOCAINE VISCOUS GIVEN WELL PT CLAIMS OF PAIN ON HER THROAT DOWN TO HER ABDOMEN EVERY TIME SHE SWALLOWS ANYTHING. KEPT RESTED AND COMFORTABLE. WILL RE-ASSESS PT.
[2018-08-31 03:30] VITALS: BP 106/58
--- NOTE | 2018-08-31 03:30 | NUR ---
REFUSE PT REFUSING TO BE WEIGHED EARLY PCP REPORTED.
--- NOTE | 2018-08-31 05:52 | NUR ---
ROUNDS PT RESTING WELL, STILL FAIRLY ASLEEP. NO DISTRESS NOTED. KEPT UNDISTURBED FOR NOW. PT STILL PENDING TO BE WEIGHED. INSTRUCTED PCP TO ENDORSE WEIGHING TO INCOMING SHIFT. FOR MORE CARE.
[2018-08-31] MEDS: IPRATROPIUM/ALBUTEROL SULFATE 3 ML SOLUTION IH SCH ×3 (07:12→21:40)
[2018-08-31 08:53] VITALS: BP 93/51
[2018-08-31] MEDS: SPIRONOLACTONE 25 MG TAB PO SCH (09:00)
[2018-08-31] MEDS: LACTULOSE 20 GM/30 ML UDCUP PO SCH ×2 (09:00→20:41)
--- NOTE | 2018-08-31 11:00 | NUR ---
CM ASSEMBLING INSPECTOR MU AWARE THAT OXYGEN TANK STILL IN PATIENT ROOM AND NEEDS TO BE PICKED UP FROM [employer]XYGEN COMPANY. MU ALSO TOLD ME THAT PLACING PATIENT ON A LIVER TRANSPLANT LIST IS NOT DONE IN THE HOSPITAL SETTING, THIS IS DONE AN OUTPATIENT INCLUDING THE PATIENTS PRIMARY MD AND A GI DOCTOR. I TOLD PATIENT AND HER OF THIS INFORMATION AND THEY SEEMED DISAPPOINTED, BUT VERBALIZED UNDERSTANDING THAT WE DO NOT PROVIDE THIS SERVICE.
--- NOTE | 2018-08-31 11:35 | NUR ---
BOWEL MOVEMENT/DIET TOLERANCE PATIENT REPORTS SHE DOES NOT HAVE RED-COLORED STOOLS TODAY. REPORTS SHE HAD "NORMAL COLORED" BOWEL MOVEMENT YESTERDAY (08/30/18) EVENING, I CLARIFIED WHAT SHE MEANT BY "NORMAL" AND PATIENT ANSWERED "BROWN COLOR" STOOL. PATIENT STATES EPIGASTRIC PAIN STILL PRESENT, FEELS BETTER THAN YESTERDAY. EPIGASTRIC PAIN AGGRAVATED BY DRINKING FLUIDS OR EATING. PATIENT STILL ON FULL LIQUID DIET, I ASK PATIENT IF SHE WAS WILLING TO TRY SOFT TEXTURE FOODS SUCH SCRAMBLED EGGS AND PATIENT SAID NO AND STATES SHE IS ABLE TO TOLERATE SIPS OF ENSURE AND YOGURT, BUT DOES NOT FEEL READY FOR TEXTURED FOODS.
[2018-08-31 11:41] VITALS: BP 99/57
--- NOTE | 2018-08-31 14:45 | NUR ---
DR. HUSAM FARRELL AWARE OF CONSULTS. REQUESTS EGD RESULTS VIA TELEPHONE DURING THIS HOSPITALIZATION.
--- NOTE | 2018-08-31 15:30 | NUR ---
DR. WEINER CALLED MD TO GIVE REQUESTED INFORMATION. NO ANSWER AT THIS TIME, LEFT VOICEMAIL WITH CALLBACK NUMBER.
[2018-08-31] MEDS: PANTOPRAZOLE SODIUM 40 MG TABLET.DR PO SCH (15:45)
[2018-08-31 16:00] VITALS: BP 106/59
--- NOTE | 2018-08-31 16:00 | NUR ---
DR. WEINER ORDERS PLACED BY . SAID TO INFORM PATIENT THAT PAIN WITH SWALLOWING EXPECTED AFTER EGD BANDING OF VARICES STATES HIS WILL BE IN TO SEE PATIENT TOMORROW MORNING.
[2018-08-31] MEDS ORDERED: SUCRALFATE 1 GM TABLET PO SCH (16:15)
[2018-08-31] MEDS ORDERED: SUCRALFATE 1 GM/10 ML ONE (16:30)
--- NOTE | 2018-08-31 16:30 | NUR ---
PATIENT INFORMED PATIENT OF DR. WEINER RECOMMENDATION THAT SWALLOWING DISCOMFORT SHOULD BE EXPECTED AND ORDERED MEDICATIONS (CARAFATE AND VISCOUS LIDOCAINE) SHOULD HELP WITH EASING DISCOMFORT WHEN SWALLOWING. PATIENT SEEMED RELIEVED AND STATES "THATS ALL I WANTED TO HEAR, THAT THE PAIN WHEN I EAT IS SOMETHING EXPECTED."
[2018-08-31 20:27] VITALS: BP 113/63
[2018-08-31] MEDS: LEVOFLOXACIN 500 MG/D5W 100 ML 100 ML IV SCH (20:33)
[2018-08-31] MEDS: FUROSEMIDE 10 MG/ML 4ML VIAL IV SCH (20:34)
[2018-08-31] MEDS: SUCRALFATE 1 GM/10 ML PO SCH (20:36)
[2018-09-01] VITALS (38 sets, daily range): BP systolic 84–145; BP diastolic 43–119
[2018-09-01] MEDS: IPRATROPIUM/ALBUTEROL SULFATE 3 ML SOLUTION IH SCH ×3 (05:18→21:57)
[2018-09-01] MEDS: LACTULOSE 20 GM/30 ML UDCUP PO SCH ×2 (09:00→21:00)
[2018-09-01] MEDS: SUCRALFATE 1 GM/10 ML PO SCH ×3 (09:47→22:28)
[2018-09-01] MEDS: SPIRONOLACTONE 25 MG TAB PO SCH (09:47)
[2018-09-01] MEDS: PANTOPRAZOLE SODIUM 40 MG TABLET.DR PO SCH (09:47)
[2018-09-01] MEDS ORDERED: ALPRAZOLAM 0.25 MG TABLET PO PRN (15:00)
[2018-09-01] MEDS ORDERED: ALPRAZOLAM 0.25 MG TABLET ONE (15:02)
--- NOTE | 2018-09-01 15:10 | NUR ---
PT STATED SHE WANTED TO VOMIT, SHE THREW UP ARGELIA BLOOD, ABOUT 200 CC WITH BLOOD CLOTHS LARGER THAN A 25CENT COIN AT BED SIDE , DR. ARREOLA MADE AWARE , STATED TO TRANSFER PATIENT TO ICU
[2018-09-01] MEDS ORDERED: OCTREOTIDE ACETATE 500 MCG in SODIUM CHLORIDE 0.9% 97.5 ML IV PRN (15:15)
[2018-09-01] MEDS ORDERED: OCTREOTIDE ACETATE 100 MCG/ML AMP IV SCH (15:15)
--- NOTE | 2018-09-01 15:23 | NUR ---
DR. JAMARI FLORES , MADE AWARE OF PT' STATUS AND BLOODY EMESIS , WITH BLOOD CLOTHS STATED HE WILL NOT SEE PATIENT , BC IS A PATIENT OF DR. PALOMO, AND TO PAGE DR. PALOMO
--- NOTE | 2018-09-01 15:23 | NUR ---
DR. STACIA FLORES
--- NOTE | 2018-09-01 15:24 | NUR ---
MILAD DIRECTOR MADE AWARE OF PT' STATUS STATED HE WILL TRY TO CONTACT DR. PALOMO
--- NOTE | 2018-09-01 15:25 | NUR ---
DR. KAUFFMAN CALLED ME BACK ,WANTED TO KNOW WHAT DR. PALOMO HAD SAID, I MADE HIM AWARE THAT WE ARE IN THE PROCESS OF GETTING A HOLD OF DR. PALOMO, STILL HAVE NOT HEARD OF HIM , DR. KAUFFMAN STATED "THAT IS DR. PALOMO'S MESS, BECAUSE HE DID A BANDING ON THAT PATIENT AND DID NOT FOLLOW UP ON THE PATIENT"- HE STATED, HE WILL GO AHEAD AND TAKE THE PATIENT GAVE ORDERS TO TRANSFER THE PATIENT STAT TO ICU, AND INTUBATE STAT AND CONSENT FOR AN EMERGENT EGD- AND HAVE BENCHMARK CALL HIM TO HIS CELLPHONE ONCE PATIENT IS INTUBATED ORDERS CONVEYED TO CHARGE NURSE RAZ AND MILAD EUGENE AND MINOR SUP.
--- NOTE | 2018-09-01 15:30 | NUR ---
DR. ARREOLA ADVISED OF THE PT HAVING LARGE AMOUNT OF BLOODY EMESIS AND CLOTS IN THE EMESIS. ORDERS NOTED.
[2018-09-01 15:36] LABS: HEMATOCRIT 25.6 % (36-48)
--- NOTE | 2018-09-01 15:40 | NUR ---
PT CONSENT FOR EMERGEN EGD WITH SPOUSE, SPOUSE SIGNED CONSENT SINCE PATIENT IS WEAK TO SIGN , PT OK WITH SPOUSE SIGNING CONSENT
--- NOTE | 2018-09-01 15:45 | NUR ---
PATIENT HAD A LARGE, BOWEL MOVEMENT WITH A MODERATE AMOUNT OF BLACK/RED STOOL CHARGE NURSE AWARE HOUSE SUP. AWARE . PATIENT WILL BE TRANSFER TO ICU TO BED 209
[2018-09-01] MEDS ORDERED: FENTANYL 2500MCG+NS 250ML 250 ML IV ONE (15:57)
--- NOTE | 2018-09-01 16:08 | NUR ---
PT WAS RECEIVED FROM 4TH FLOOR AND PT WAS INTUBATED PER DR. ARREOLA AND WAS ADVISED OF THE PLAN OF CARE PRIOR TO INTUBATED.
[2018-09-01] MEDS ORDERED: FENTANYL CITRATE PF 50 MCG/1 ML 2ML VIAL ONE (16:10)
[2018-09-01] MEDS ORDERED: MIDAZOLAM HCL 1 MG/ML 2ML VIAL ONE (16:11)
[2018-09-01 16:12] LABS: % IRON SATURATION 9.9 % (22-44)
--- NOTE | 2018-09-01 16:27 | NUR ---
DR. PALOMO CALLED BACK , STATED WHY WOULD HE SEE PATIENT WHEN THERE IS ANOTHER GI DOCTOR ON BOARD, I PASSED THE CALLED TO DIRECTOR MILAD, AND PER CHARGE NURSE VALORIE FOLLOW DR. KAUFFMAN'S ORDERS Addendum: 09/01/18 at 1940 by MARTÍN PAGE RN THIS HAPPENED AT 2565
--- NOTE | 2018-09-01 16:30 | NUR ---
MILAD DIRECTOR FINISHED TALKING WITH DR. PALOMO, I ASKED HIM, WHAT TO DO, HE STATED TO FOLLOW DR. KAUFFMAN'S ORDERS AND TRANSFER PATIENT TO ICU AND INTUBATE ORDERED, MILAD CASANOVA CURRENTLY SPEAKING WITH MINOR GONZALEZ FOR A BED IN ICU , SINCE PREVIOUSLY MINOR GONZALEZ STATED THERE WERE NO ICU BED AVAILABLE Addendum: 09/01/18 at 1940 by MARTÍN PAGE RN THIS HAPPENED AT 1530
--- NOTE | 2018-09-01 16:40 | NUR ---
FULL BEDSIDE REPORT GIVEN TO [facility] ICU NURSE
[2018-09-01] MEDS ORDERED: PROPOFOL 1000 MG/100 ML 100 ML IV ONE (16:56)
[2018-09-01] MEDS ORDERED: PHYTONADIONE 10 MG/1 ML AMP ONE (17:28)
[2018-09-01] MEDS ORDERED: EPINEPHRINE 1 MG/ML AMPULE ONE (17:32)
[2018-09-01] MEDS: PANTOPRAZOLE 40 MG/VIAL IVP SCH (17:37)
[2018-09-01] MEDS: PROPOFOL 1000 MG/100 ML IV PRN (17:40)
[2018-09-01] MEDS ORDERED: COMPOUND IV MISC 1 EACH IVSOLN MISC PRN (18:00)
[2018-09-01] MEDS ORDERED: PROPOFOL 10 MG/ML 20ML VIAL IV ONE (18:19)
--- NOTE | 2018-09-01 18:21 | NUR ---
GI LAB HERE FOR EGD AND WAS IN ROOM WHEN DR. KAUFFMAN ARRIVED AND WAS ADVISED TO STEP OUT TO LOBBY AND HE WOULD BE GIVEN THE RESULTS AFTER THE PROCEDURE.
--- NOTE | 2018-09-01 18:50 | NUR ---
DR. WEINER SPOKE WITH AND ADVISED THAT AT PRESENT THERE IS NO ACTIVE BLEEDING AND THAT IT SHOWED 3 ULCERS BUT NO ACTIVE BLEEDING TO CARE FOR, WILL CONTINUE TO MONITOR AND FOR FURTHER BLEEDING.
[2018-09-01] MEDS ORDERED: SODIUM CHLORIDE 0.9% 500ML 500 ML IV ONE (20:00)
--- NOTE | 2018-09-01 20:30 | NUR ---
ASSESSMENT PT RESTING IN BED. PT INTUBATED, SEDATED, ETT 7.5, 21 CM, SETTING AC-14-70%-500- PEEP 10. CALLBELL REVIEWED AND WITHIN REACH. WHITE BOARD UP-DATED. IV FLUIDS INFUSING WITHOUT DIFFICULTY. NGT TO L.I.W.S. SCD IN PLACE. ASSESSMENT COMPLETED, SEE FLOW SHEET.
[2018-09-01 21:41] LABS: HEMATOCRIT 25.3 % (36-48)
[2018-09-01] MEDS: FUROSEMIDE 40 MG TABLET PO SCH (22:00)
[2018-09-02] VITALS (36 sets, daily range): BP systolic 88–119; BP diastolic 39–73
[2018-09-02] MEDS ORDERED: SODIUM CHLORIDE 0.9% 500ML 500 ML IV ONE ×2 (01:20→23:12)
[2018-09-02] MEDS: PROPOFOL 1000 MG/100 ML IV PRN (02:23)
[2018-09-02 03:47] LABS: ALBUMIN 2.2 g/dL (3.5-5.0); BILIRUBIN,TOTAL 3.2 mg/dL (0.2-1.0); CREATININE 1.1 mg/dL (0.5-1.5); POTASSIUM 3.3 mmol/L (3.5-5.1); TOTAL PROTEIN, SERUM 6.1 g/dL (6.0-8.3)
[2018-09-02 03:48] LABS: MEAN CORPUSCULAR HEMOGLOBIN 35.4 pg (27.0-33.0); MEAN CORPUSCULAR HGB CONC 35.6 g/dL (32.0-36.0); MEAN CORPUSCULAR VOLUME 99.4 fL (79-99); NUCLEATED RED BLOOD CELLS 0.1 % (0.0-0.19); PLATELET COUNT (AUTO) 109 K/uL (130-400); RED BLOOD CELL COUNT(AUTO) 1.94 MIL/uL (4.00-5.50); RED CELL DISTRIBUTION WIDTH 16.8 % (11.0-15.5); WHITE BLOOD COUNT (AUTO) 10.7 K/uL (4.8-10.8)
[2018-09-02 04:23] LABS: HEMATOCRIT 19.3 % (36-48)
[2018-09-02] MEDS: IPRATROPIUM/ALBUTEROL SULFATE 3 ML SOLUTION IH SCH ×3 (07:22→21:46)
[2018-09-02] MEDS ORDERED: FENTANYL 2500MCG+NS 250ML 250 ML IV ONE (07:26)
[2018-09-02] MEDS ORDERED: FENTANYL 2500MCG+NS 250ML 250 ML IV PRN (07:45)
[2018-09-02] MEDS ORDERED: MIDAZOLAM 100MG-0.9% NS 100ML 100 ML IV PRN (07:45)
--- NOTE | 2018-09-02 07:45 | NUR ---
REPORT REPORT GIVEN TO Josefina PARKS.
[2018-09-02] MEDS ORDERED: SODIUM CHLORIDE 0.9% 250 ML IV ONE (08:55)
[2018-09-02] MEDS ORDERED: PHYTONADIONE 10 MG/1 ML AMP IV SCH (09:00)
[2018-09-02 09:17] LABS: HEMATOCRIT 19.2 % (36-48)
[2018-09-02 09:19] LABS: INR 1.35 (0.85-1.15); PARTIAL THROMBOPLASTIN TIME 31.2 SEC (26.3-35.5); PROTHROMBIN TIME 14.1 SEC (9.6-11.6)
[2018-09-02] MEDS: SUCRALFATE 1 GM/10 ML PO SCH ×2 (09:28→21:00)
[2018-09-02] MEDS: LACTULOSE 20 GM/30 ML UDCUP PO SCH ×2 (09:29→21:00)
[2018-09-02] MEDS: PANTOPRAZOLE 40 MG/VIAL IVP SCH ×2 (09:29→22:11)
[2018-09-02] MEDS: SPIRONOLACTONE 25 MG TAB PO SCH (09:29)
[2018-09-02] MEDS: FUROSEMIDE 40 MG TABLET PO SCH (09:29)
--- NOTE | 2018-09-02 09:30 | NUR ---
PT HAS BEING WEANED OFF THE SEDATION IN POSSIBLE ATTEMPT TO EXTUBATE.
[2018-09-02] MEDS: PHYTONADIONE 10 MG in SODIUM CHLORIDE 0.9% 50 ML SQ SCH (09:31)
--- NOTE | 2018-09-02 10:30 | NUR ---
PT WAS RECEIVING BLOOD FOR A HEMOGLOBIN OF 6.6. AT BEDSIDE AND AWARE OF PT'S BLOOD COUNT AND NEED FOR BLOOD. PT HAS HAD SOME EMESIS OF OLD AND FRESH BLOOD. [facility] PILOT HAS BEEN UPDATED AND WILL ADVISE DR. ARREOLA.
[2018-09-02 11:08] LABS: ABG BASE EXCESS 6.9 mmol/L (-2.0-3.0); ABG HCO3 32.3 mmol/L (21.0-28.0); ABG OXYGEN SATURATION 98.8 % (95.0-99.0); ABG PCO2 48 mmHg (32-45)
--- NOTE | 2018-09-02 12:00 | NUR ---
WEANING OFF THE VENTILATOR HAS BEEN STOPPED DUE TO PT'S BLOODY EMESIS.
[2018-09-02 12:07] LABS: HEMATOCRIT 21.5 % (36-48)
[2018-09-02] MEDS: ONDANSETRON HCL 4 MG/2 ML VIAL IVP PRN (12:28)
[2018-09-02] MEDS ORDERED: LIDOCAINE HCL 1% MDV 50ML VIAL ONE (14:30)
[2018-09-02] MEDS ORDERED: IODIXANOL 320 MG/ML 100 ML VIAL ONE ×2 (14:30→17:17)
--- NOTE | 2018-09-02 14:32 | NUR ---
RD Follow-up Patient with diet held pending procedure. Patient with poor PO intake and tolerance with nausea, vomiting. Patient was tolerating and requesting Ensure as of yesterday. RD to continue to monitor. LBM 08/30/18. Patient monitored labs: H/H 6.6/.2, K 3.3, Cl 97, CO2 35, BUN 24, GFR 54, Glu 141, Lactic Acid 3.5, T. Bili 3.2, AST 58, Alb 2.2. RD to continue to monitor. Please notify RD as nutritional concerns arise. Thank you. Addendum: 09/02/18 at [address] Amended: Links added.
--- NOTE | 2018-09-02 14:50 | NUR ---
PT TAKEN TO ECOSYSTEM ECOLOGY PROFESSOR FOR PROCEDURE TIPS AND PT HAS HAD 4 EPISODES OF VOMITING OLD AND FRESH BLOOD. DR. GRACE SPOKE WITH DR. ARREOLA CONCERNING PATIENT AND THE NEED FOR THE PROCEDURE.
[2018-09-02] MEDS ORDERED: SODIUM BICARB 50MEQ 50ML VIAL ONE (15:29)
[2018-09-02] MEDS ORDERED: ROCURONIUM 10MG/1ML SYR 10 MG/ML ML ONE (15:34)
[2018-09-02] MEDS ORDERED: PROPOFOL 1000 MG/100 ML 100 ML IV ONE (15:34)
[2018-09-02] MEDS ORDERED: NEOSTIGMINE 5MG/5ML SYR IV ONE (15:34)
[2018-09-02] MEDS ORDERED: FENTANYL CITRATE PF 50 MCG/1 ML 2ML VIAL ONE (15:34)
[2018-09-02] MEDS ORDERED: ESMOLOL HCL 10 MG/ML 10 ML VIAL ONE (15:34)
[2018-09-02] MEDS ORDERED: GLYCOPYRROLATE 0.2 MG/ML 5 ML VIAL ONE (15:34)
--- NOTE | 2018-09-02 18:30 | NUR ---
PT WAS RECEIVED FROM MARINE BIOLOGIST AFTER TRIPS PROCEDURE. PT WAS CONNECTED TO VENTILATOR PRESCRIBED.
--- NOTE | 2018-09-02 18:45 | NUR ---
PT HAS BEEN RESTING AND WILL MAKE GESTURES OF WANTING TO GET HER HANDS UP MITTENS WERE APPLIED AND ON FENTANYL DRIP. REPORT GIVEN TO CHRISTINA PARKS. PT IS ON FENTANYL DRIP, RIGHT NECK DRESSING (D-STAT) DRY AND INTACT.
[2018-09-02 19:04] LABS: HEMATOCRIT 20.6 % (36-48)
--- NOTE | 2018-09-02 20:00 | NUR ---
ASSESSMENT PT RESTING IN BED. PT INTUBATED, SEDATED, ETT 7.5, 21 CM, SETTING AC-14-50%-500- PEEP 10. CALLBELL REVIEWED AND WITHIN REACH. WHITE BOARD UP-DATED. IV FLUIDS INFUSING WITHOUT DIFFICULTY. NGT TO L.I.W.S. SCD IN PLACE. ASSESSMENT COMPLETED, SEE FLOW SHEET.
[2018-09-02 23:03] LABS: HEMATOCRIT 19.7 % (36-48)
[2018-09-03] VITALS (33 sets, daily range): BP systolic 83–129; BP diastolic 36–64
[2018-09-03] MEDS: PROPOFOL 1000 MG/100 ML IV PRN ×2 (03:46→16:36)
[2018-09-03 04:43] LABS: ABG BASE EXCESS 8.8 mmol/L (-2.0-3.0); ABG HCO3 31.5 mmol/L (21.0-28.0); ABG OXYGEN SATURATION 98.8 % (95.0-99.0); ABG PCO2 37 mmHg (32-45)
[2018-09-03 06:12] LABS: CREATININE 0.7 mg/dL (0.5-1.5); POTASSIUM 3.2 mmol/L (3.5-5.1)
[2018-09-03 06:21] LABS: HEMATOCRIT 21.2 % (36-48); MEAN CORPUSCULAR HEMOGLOBIN 31.5 pg (27.0-33.0); MEAN CORPUSCULAR HGB CONC 33.9 g/dL (32.0-36.0); MEAN CORPUSCULAR VOLUME 92.8 fL (79-99); NUCLEATED RED BLOOD CELLS 0.1 % (0.0-0.19); PLATELET COUNT (AUTO) 110 K/uL (130-400); RED BLOOD CELL COUNT(AUTO) 2.29 MIL/uL (4.00-5.50); RED CELL DISTRIBUTION WIDTH 18.4 % (11.0-15.5); WHITE BLOOD COUNT (AUTO) 11.9 K/uL (4.8-10.8)
[2018-09-03] MEDS: IPRATROPIUM/ALBUTEROL SULFATE 3 ML SOLUTION IH SCH ×3 (06:58→21:17)
--- NOTE | 2018-09-03 07:37 | NUR ---
REPORT BEDSIDE REPORT GIVEN TO BRITTANY PARKS.
[2018-09-03 07:41] LABS: BAND NEUTROPHILS % (MANUAL) 5 % (0-2); EOSINOPHILS % (MANUAL) 3 % (1-6); LYMPHOCYTES % (MANUAL) 12 % (22-44); MONOCYTES % (MANUAL) 1 % (2-9); SEGMENTED NEUTROPHILS % 79 % (40-70)
[2018-09-03 07:42] LABS: MAN.DIFF COMMENT-IMPRESSION MANUAL DIFFERENTIAL; PLATELET MORPHOLOGY COMMENT SLIGHTLY DECREASED
[2018-09-03] MEDS: PHYTONADIONE 10 MG in SODIUM CHLORIDE 0.9% 50 ML SQ SCH (09:00)
[2018-09-03] MEDS: PANTOPRAZOLE 40 MG/VIAL IVP SCH ×2 (09:12→20:51)
[2018-09-03 09:13] LABS: HEMATOCRIT 22.1 % (36-48)
[2018-09-03] MEDS: SUCRALFATE 1 GM/10 ML PO SCH ×3 (09:13→20:51)
[2018-09-03] MEDS: FUROSEMIDE 40 MG TABLET PO SCH (09:13)
[2018-09-03] MEDS: LACTULOSE 20 GM/30 ML UDCUP PO SCH ×2 (09:13→18:04)
[2018-09-03] MEDS: SPIRONOLACTONE 25 MG TAB PO SCH (09:13)
[2018-09-03] MEDS: POTASSIUM CHLORIDE 20MEQ/100ML 100 ML IV PRN (09:14)
[2018-09-03] MEDS: LIDOCAINE HCL-MPF 1% 2ML VIAL IVP PRN (09:14)
--- NOTE | 2018-09-03 12:00 | NUR ---
DR. OLIVERA IN TO SEE PT. PLAN OF CARE DISCUSSED. NEW ORDERS RECEIVED AND NOTED.
[2018-09-03] MEDS: POTASSIUM CHLORIDE 10% ELIXIR 20 MEQ/15 ML UDCUP PO PRN (13:47)
--- NOTE | 2018-09-03 15:33 | NUR ---
RD Follow up Note Patient sedated, intubated, NGT. RD notification for tube feeding recommendations. Rec TF: Vital AF 1.2 @55mL/hr: 1320mL/1584kcal/99gm protein/1071 free H2O. Flushes: 180mL Q4hrs. Recommendations placed in patient chart. RN notified. Patient monitored labs: K 3.2, BUN 24, Ca 8.2, NH3 53, Alb 2.9. Patient LBM 08/30/18; When medically feasible, rec to add stool softener/laxative for constipation. RD to continue to monitor. Please notify RD as nutritional concerns arise. Thank you. Addendum: 09/03/18 at [address] Amended: Links added.
[2018-09-03 16:10] LABS: HEMATOCRIT 22.4 % (36-48)
[2018-09-03] MEDS ORDERED: LACTULOSE 20 GM/30 ML UDCUP PO SCH (18:00)
--- NOTE | 2018-09-03 20:00 | NUR ---
ASSESSMENT REMAINS ON VENT WITH ORDERED SETTINGS AND SEDATION. AT BEDSIDE AND QUESTIONS ANSWERED. ASSESSMENT COMPLETED SEE FLOW SHEET. Addendum: 09/03/18 at 2034 by PASCUAL BERNAL RN RN Amended: Links added.
[2018-09-03 21:35] LABS: HEMATOCRIT 21.8 % (36-48)
[2018-09-04] VITALS (24 sets, daily range): BP systolic 95–148; BP diastolic 45–89
[2018-09-04] MEDS: LACTULOSE 20 GM/30 ML UDCUP PO SCH ×6 (00:26→21:30)
[2018-09-04] MEDS: PROPOFOL 1000 MG/100 ML IV PRN (03:00)
[2018-09-04 03:50] LABS: MEAN CORPUSCULAR HEMOGLOBIN 33.3 pg (27.0-33.0); MEAN CORPUSCULAR HGB CONC 35.3 g/dL (32.0-36.0); MEAN CORPUSCULAR VOLUME 94.4 fL (79-99); PLATELET COUNT (AUTO) 97 K/uL (130-400); RED BLOOD CELL COUNT(AUTO) 2.21 MIL/uL (4.00-5.50); RED CELL DISTRIBUTION WIDTH 18.1 % (11.0-15.5); WHITE BLOOD COUNT (AUTO) 9.1 K/uL (4.8-10.8)
[2018-09-04 03:56] LABS: HEMATOCRIT 20.9 % (36-48)
[2018-09-04 04:04] LABS: ALBUMIN 1.9 g/dL (3.5-5.0); CREATININE 0.8 mg/dL (0.5-1.5); POTASSIUM 3.1 mmol/L (3.5-5.1); TOTAL PROTEIN, SERUM 5.3 g/dL (6.0-8.3)
[2018-09-04 04:07] LABS: ABG BASE EXCESS 4.7 mmol/L (-2.0-3.0); ABG HCO3 28.1 mmol/L (21.0-28.0); ABG OXYGEN SATURATION 90.9 % (95.0-99.0); ABG PCO2 38 mmHg (32-45)
[2018-09-04 04:12] LABS: EOSINOPHILS % (MANUAL) 3 % (1-6); LYMPHOCYTES % (MANUAL) 21 % (22-44); MAN.DIFF COMMENT-IMPRESSION MANUAL DIFFERENTIAL; MONOCYTES % (MANUAL) 6 % (2-9); PLATELET MORPHOLOGY COMMENT SLIGHTLY DECREASED; SEGMENTED NEUTROPHILS % 70 % (40-70)
[2018-09-04] MEDS: IPRATROPIUM/ALBUTEROL SULFATE 3 ML SOLUTION IH SCH ×3 (06:32→23:15)
--- NOTE | 2018-09-04 08:30 | NUR ---
Gennaro VELEZ CLERK STENOGRAPHER AT BEDSIDE TO SEE PT. PLAN OF CARE DISCUSSED. NOTIFIED OF LABS/CXR/ABG RESULTS. NEW ORDERS RECEIVED AND NOTED.
[2018-09-04] MEDS: SPIRONOLACTONE 25 MG TAB PO SCH (08:32)
[2018-09-04] MEDS: FUROSEMIDE 40 MG TABLET PO SCH (08:32)
[2018-09-04] MEDS: PANTOPRAZOLE SODIUM 40 MG TABLET.DR PO SCH ×2 (08:33→21:00)
[2018-09-04] MEDS: POTASSIUM CHLORIDE 20MEQ/100ML 100 ML IV PRN (08:33)
[2018-09-04] MEDS: LIDOCAINE HCL-MPF 1% 2ML VIAL IVP PRN (08:33)
[2018-09-04] MEDS: SUCRALFATE 1 GM/10 ML PO SCH ×3 (08:33→21:30)
[2018-09-04] MEDS ORDERED: LACTULOSE 20 GM/30 ML UDCUP ONE (08:34)
[2018-09-04] MEDS: POTASSIUM CHLORIDE 10% ELIXIR 20 MEQ/15 ML UDCUP PO PRN ×4 (08:35→18:03)
--- NOTE | 2018-09-04 09:00 | NUR ---
SEDATION VACATION IN PLACE. PT OPENS EYES , ATTEMPTS TO SIT UP IN BED. NOT ABLE TO FOLLOW COMMANDS AT THIS MOMENT.
--- NOTE | 2018-09-04 09:56 | NUR ---
PT PLACED ON CPAP 10/5 50%. INSTRUCTED ON WEANING PROCESS. PT AWAKE BUT UNABLE TO FOLLOW COMMANDS. CONTINUE TO MONITOR PT.
--- NOTE | 2018-09-04 10:00 | NUR ---
CM NOTE- DC PLAN? LTAC? PT SEEN AT BEDSIDE W SPOUSE; PT IN PROCESS OF EXTUBATION, RESTLESS BUT ABLE TO SHAKE HEAD NO DURING CONVERSATION. SPOUSE STATES PT IS FROM [place]- THAT IS WHY HER COVERAGE IS A [employer]. SPOUSE STATES PT WILL PROBABLY NOT WANT TO GO ANYWHERE AFTER HOSPITALATION. GOT PERMISSION FROM SPOUSE TO CONTACT INSURACE FOR POSSIBLE SNF/LTACH PROCESS IN CASE IT IS NEEDED. WILL WAIT UNITL TOMORRW TO SEE IF PATIENTS EXTUBATION IS SUCCESSFUL Addendum: 09/05/18 at 0844 by DEREJE CAVAZOS RN CM Amended: Links added.
[2018-09-04 11:03] LABS: ABG BASE EXCESS 5.2 mmol/L (-2.0-3.0); ABG HCO3 28.5 mmol/L (21.0-28.0); ABG OXYGEN SATURATION 95.8 % (95.0-99.0); ABG PCO2 38 mmHg (32-45)
--- NOTE | 2018-09-04 12:50 | NUR ---
DR. PÉREZ IN TO SEE PT. PLAN OF CARE DISCUSSED. PT PLACED ON CPAP 5/5 50 % ORDERED.
[2018-09-04 13:16] LABS: ABG BASE EXCESS 4.3 mmol/L (-2.0-3.0); ABG HCO3 28.1 mmol/L (21.0-28.0); ABG OXYGEN SATURATION 98.4 % (95.0-99.0); ABG PCO2 39 mmHg (32-45)
--- NOTE | 2018-09-04 13:30 | NUR ---
DR. PÉREZ CALLED AND NOTIFIED OF ABG RESULTS. NEW ORDERS TO EXTUBATE. PT EXTUBATED ORDERED. PLACED ON AFM 40 %. 1400 PT RESTLESS, TACHYCARDIC AND O2 SATS 89-90% DR. PÉREZ NOTIFIED. PLACED ON BIPAP ORDERED.
[2018-09-04] MEDS: RIFAXIMIN 550 MG TABLET PO SCH ×2 (13:56→21:30)
[2018-09-04] MEDS ORDERED: PHARMACY COMMUNICATION MISC SCH (14:45)
[2018-09-04] MEDS: FUROSEMIDE 10 MG/ML 4ML VIAL IV SCH ×2 (14:48→22:53)
[2018-09-04] MEDS ORDERED: LACTULOSE 20 GM/30 ML UDCUP PR SCH (17:00)
--- NOTE | 2018-09-04 18:34 | NUR ---
DR. PÉREZ CALLED AND NOTIFIED OF LIQUID BURGUNDY STOOLS. NEW ORDERS RECEIVED AND NOTED.
[2018-09-04 19:14] LABS: HEMATOCRIT 24.8 % (36-48)
--- NOTE | 2018-09-04 19:45 | NUR ---
INCONTINENT LIQUID STOOL. BATH GIVEN AND LINENS CHANGED.
--- NOTE | 2018-09-04 20:00 | NUR ---
ASSESSMENT IN BED WITH BIPAP IN PLACE. AT BEDSIDE AND QUESTIONS ANSWERED. ASSESSMENT COMPLETED SEE FLOW SHEET. Addendum: 09/04/18 at 2047 by PASCUAL BERNAL RN RN Amended: Links added.
[2018-09-04] MEDS ORDERED: RIFAXIMIN 200 MG TABLET PO SCH (21:00)
[2018-09-05] VITALS (25 sets, daily range): BP systolic 100–143; BP diastolic 42–82
[2018-09-05 01:15] LABS: HEMATOCRIT 25.2 % (36-48)
[2018-09-05] MEDS: LACTULOSE 20 GM/30 ML UDCUP PO SCH ×6 (02:23→21:46)
[2018-09-05 03:36] LABS: HEMATOCRIT 24.2 % (36-48); MEAN CORPUSCULAR HEMOGLOBIN 32.4 pg (27.0-33.0); MEAN CORPUSCULAR HGB CONC 34.2 g/dL (32.0-36.0); NUCLEATED RED BLOOD CELLS 0.1 % (0.0-0.19); PLATELET COUNT (AUTO) 115 K/uL (130-400); RED BLOOD CELL COUNT(AUTO) 2.54 MIL/uL (4.00-5.50); RED CELL DISTRIBUTION WIDTH 18.5 % (11.0-15.5); WHITE BLOOD COUNT (AUTO) 9.6 K/uL (4.8-10.8)
[2018-09-05 03:46] LABS: CREATININE 0.8 mg/dL (0.5-1.5); POTASSIUM 3.1 mmol/L (3.5-5.1)
[2018-09-05 04:13] LABS: ABG HCO3 29.5 mmol/L (21.0-28.0); ABG OXYGEN SATURATION 98.4 % (95.0-99.0); ABG PCO2 43 mmHg (32-45)
[2018-09-05] MEDS: FUROSEMIDE 10 MG/ML 4ML VIAL IV SCH ×3 (05:49→21:46)
[2018-09-05] MEDS: POTASSIUM CHLORIDE 10% ELIXIR 20 MEQ/15 ML UDCUP PO PRN ×3 (06:04→18:01)
[2018-09-05] MEDS: IPRATROPIUM/ALBUTEROL SULFATE 3 ML SOLUTION IH SCH ×4 (06:30→23:45)
[2018-09-05] MEDS: SUCRALFATE 1 GM/10 ML PO SCH ×3 (09:28→21:46)
[2018-09-05] MEDS: RIFAXIMIN 550 MG TABLET PO SCH ×2 (09:28→21:46)
[2018-09-05] MEDS: PANTOPRAZOLE SODIUM 40 MG TABLET.DR PO SCH ×2 (09:28→21:00)
[2018-09-05] MEDS: SPIRONOLACTONE 25 MG TAB PO SCH (09:28)
[2018-09-05] MEDS ORDERED: TRAMADOL HCL 50 MG TABLET PO PRN (10:30)
[2018-09-05] MEDS: OCTREOTIDE ACETATE 100 MCG/ML AMP SQ SCH ×2 (12:32→21:47)
[2018-09-05] MEDS: MAGNESIUM 2GM PREMIX 50ML 50 ML IV PRN (12:32)
--- NOTE | 2018-09-05 12:52 | NUR ---
CHART CHECK COMPLETED. HOLD BEDSIDE SWALLOW EVALUATION. Pt EXTUBATED ON 09/04/2018. Pt WITH CURRENT PROBLEM LISTS: 1. Initial presentation with sepsis on admission with suspected spontaneous bacterial peritonitis. 2. Newly diagnosed liver cirrhosis with underlying ascites could be secondary to primary biliary cholangitis. 3. Family history of nonalcoholic liver cirrhosis. 4. Recent cholecystectomy and subsequent MRCP. 5. Azotemia. 6. History of transient ischemic attacks. 7. History of prior small-bowel obstruction secondary to history of abdominal adhesions. 8. Esophageal varices, status post banding. 9. Persistent odynophagia with esophageal narrowing distally. 10. Diverticulosis. 11. Gastrointestinal bleeding, intermittent. 12. Hyperlipidemia. 13. Hypoxemia, on oxygen. 14. Deconditioning. 15. Other comorbidities as mentioned in previous notes. HORSEBACK RIDING INSTRUCTOR COORDINATED WITH NURSE MCKEON. Pt CURRENTLY ON NG TUBE FEEDINGS AT THIS TIME. NURSE STATES THAT Pt IS NOT READY FOR AN EVALUATION AT THIS TIME. HORSEBACK RIDING INSTRUCTOR TO FOLLOW UP WITH Pt WHEN CLEARED FOR P.O. Addendum: 09/05/18 at 1257 by AYE THAYER Amended: Links added.
--- NOTE | 2018-09-05 13:16 | NUR ---
CM NOTE NOTES PT EXTUBATED AND FAMILY AT B/SIDE. WAITING FOR FOLLOWUP ORDERS FOR DC PLANNING
[2018-09-05 13:17] LABS: HEMATOCRIT 22.7 % (36-48)
[2018-09-05 19:23] LABS: HEMATOCRIT 21.3 % (36-48)
--- NOTE | 2018-09-05 20:00 | NUR ---
ASSESSMENT PT RESTING IN BED. AT BEDSIDE. IV FLUIDS INFUSING WITHOUT DIFFICULTY. PT LETHARGIC, O2 3L NC IN PLACE. RIGHT NARE NGT 18 FR WITH VITAL INFUSING WITHOUT DIFFICULTY. 16 FR LOVE CATH TO BEDSIDE DRAINAGE. SCD IN PLACE. ASSESSMENT COMPLETED, SEE FLOW SHEET. CALLBELL WITHIN REACH. WHITE BOARD UP-DATED.
[2018-09-06] VITALS (25 sets, daily range): BP systolic 110–143; BP diastolic 49–78
--- NOTE | 2018-09-06 | NUR ---
ASSESSMENT PT RESTING IN BED. IV SALINE LOCKED. PT MORE TALKATIVE, WATCHING T.V. O2 3L NC IN PLACE. RIGHT NARE NGT 18 FR WITH VITAL INFUSING WITHOUT DIFFICULTY. 16 FR LOVE CATH TO BEDSIDE DRAINAGE. SCD IN PLACE. ASSESSMENT COMPLETED, SEE FLOW SHEET. CALLBELL WITHIN REACH. WHITE BOARD UP-DATED.
[2018-09-06] MEDS: LACTULOSE 20 GM/30 ML UDCUP PO SCH ×7 (02:16→23:47)
[2018-09-06 03:49] LABS: HEMATOCRIT 21.2 % (36-48); MEAN CORPUSCULAR HEMOGLOBIN 32.8 pg (27.0-33.0); MEAN CORPUSCULAR VOLUME 96.4 fL (79-99); NUCLEATED RED BLOOD CELLS 0.1 % (0.0-0.19); PLATELET COUNT (AUTO) 112 K/uL (130-400); WHITE BLOOD COUNT (AUTO) 8.8 K/uL (4.8-10.8)
--- NOTE | 2018-09-06 04:00 | NUR ---
ASSESSMENT PT RESTING IN BED. PT MORE AWAKE, TALKING, REQUESTING WATER. O2 3L NC IN PLACE. RIGHT NARE NGT 18 FR WITH VITAL INFUSING WITHOUT DIFFICULTY. 16 FR LOVE CATH TO BEDSIDE DRAINAGE. SCD IN PLACE. ASSESSMENT COMPLETED, SEE FLOW SHEET.
[2018-09-06 04:02] LABS: CREATININE 0.9 mg/dL (0.5-1.5); MAGNESIUM 1.7 mg/dL (1.80-2.40); PHOSPHORUS 3.3 mg/dL (2.5-4.9); POTASSIUM 3.5 mmol/L (3.5-5.1)
[2018-09-06 04:04] LABS: INR 1.36 (0.85-1.15); PARTIAL THROMBOPLASTIN TIME 31.4 SEC (26.3-35.5); PROTHROMBIN TIME 14.2 SEC (9.6-11.6)
--- NOTE | 2018-09-06 05:15 | NUR ---
BLOOD WITH CLOTS NGT FLUSHED AND ASPIRATED, BLOOD WITH CLOTS NOTED. NGT IRRIGATED WITH 300ML NS. OUTPUT 200ML.
--- NOTE | 2018-09-06 06:00 | NUR ---
WILTON SOLIS EXCELLENCE SPECIALIST CALL PLACED TO [facility] AT 0545, RETURN CALL AT 0600, EXCELLENCE SPECIALIST MADE AWARE LABS, NGT PLACED TO L.I.W.S., TUBE FEEDING STOPPED. ORDERS RECEIVED TO CALL GI DOCTOR
--- NOTE | 2018-09-06 06:03 | NUR ---
DR STACIA PALOMO MADE AWARE OF CURRENT STATUS, ORDERS RECEIVED TO CALL DR. KAUFFMAN "THIS PT HAS CHANGED DOCTORS. CALL DR. KAUFFMAN"
--- NOTE | 2018-09-06 06:10 | NUR ---
DR JAMARI KAUFFMAN, MESSAGE LEFT RE: PT STATUS.
--- NOTE | 2018-09-06 06:33 | NUR ---
KIRSTIN INVISIBLE BRACES ORTHODONTIST KIRSTIN INVISIBLE BRACES ORTHODONTIST MADE AWARE RE: PT STATUS, ORDERS AND MESSAGE LEFT FOR
--- NOTE | 2018-09-06 06:46 | NUR ---
GI HAVE DISCUSSED CASE WITH GI NURSE WHO IS IN GI LAB PREPARING FOR CASES FOR DR. ASCENCIO. HAVE INFORMED HER THAT HIS PATIENT WAS ORIGINALLY SEEN BY DR. PALOMO AND WANTED A SECOND OPINION. DR. KAUFFMAN HAD ASSUMED CARE BUT HE IS NOT MEDICAL TECH THIS WEEKEND. SHE WILL PRESENT CASE TO DR. ASCENCIO.
--- NOTE | 2018-09-06 07:00 | NUR ---
REPORT REPORT GIVEN TO LINDA PARKS
--- NOTE | 2018-09-06 07:00 | NUR ---
GI LAB UP-DATED [facility] WITH PT STATUS AND PAST HISTORY. PT TO REMAIN NPO.
[2018-09-06] MEDS: FUROSEMIDE 10 MG/ML 4ML VIAL IV SCH ×3 (07:18→22:04)
[2018-09-06] MEDS: RIFAXIMIN 550 MG TABLET PO SCH ×2 (08:38→20:56)
[2018-09-06] MEDS: SPIRONOLACTONE 25 MG TAB PO SCH (08:38)
[2018-09-06] MEDS: PANTOPRAZOLE SODIUM 40 MG TABLET.DR PO SCH ×2 (08:50→20:56)
[2018-09-06] MEDS: SUCRALFATE 1 GM/10 ML PO SCH ×3 (08:50→20:56)
[2018-09-06] MEDS: IPRATROPIUM/ALBUTEROL SULFATE 3 ML SOLUTION IH SCH ×4 (09:11→23:26)
--- NOTE | 2018-09-06 10:48 | NUR ---
HOLD BEDSIDE SWALLOW EVALUATION. Pt EXTUBATED ON 09/04/2018. Pt WITH CURRENT PROBLEM LISTS: 1. Initial presentation with sepsis on admission with suspected spontaneous bacterial peritonitis. 2. Newly diagnosed liver cirrhosis with underlying ascites could be secondary to primary biliary cholangitis. 3. Family history of nonalcoholic liver cirrhosis. 4. Recent cholecystectomy and subsequent MRCP. 5. Azotemia. 6. History of transient ischemic attacks. 7. History of prior small-bowel obstruction secondary to history of abdominal adhesions. 8. Esophageal varices, status post banding. 9. Persistent odynophagia with esophageal narrowing distally. 10. Diverticulosis. 11. Gastrointestinal bleeding, intermittent. 12. Hyperlipidemia. 13. Hypoxemia, on oxygen. 14. Deconditioning. 15. Other comorbidities as mentioned in previous notes. SHEET METAL WORKER APPRENTICE COORDINATED WITH NURSE MCKEON. PATIENT CURRENTLY ON NG TUBE FEEDINGS, AT THIS TIME. NURSE STATES THAT PATIENT IS NOT READY FOR AN EVALUATION AT THIS TIME. SHEET METAL WORKER APPRENTICE TO FOLLOW UP WITH PATIENT WHEN PATIENT CLEARED FOR PO. Addendum: 09/06/[address]ATHY STARR Amended: Links added.
[2018-09-06] MEDS: OCTREOTIDE ACETATE 100 MCG/ML AMP SQ SCH ×3 (10:52→22:03)
--- NOTE | 2018-09-06 12:30 | NUR ---
PT "ACCIDENTALLY" REMOVED NGT WITH AT BEDSIDE PT IN BED WITH PROTECTIVE MITTENS ON AND SITTING DIRECTLY AT BEDSIDE WHEN PCP LUIS M CALLS OUT TO ME THAT THE NGT IS OUT. NGT WAS PLACED DURING EGD BY DR WEINER DUE TO ESOPHAGEAL VARICES, CANNOT REPLACE IT AT THIS TIME.
[2018-09-06] MEDS ORDERED: SODIUM CHLORIDE 0.9% 250 ML IV ONE (16:34)
--- NOTE | 2018-09-06 20:00 | NUR ---
ASSESSMENT PT IN BED WATCHING TV WITH AT BEDSIDE. PT AWAKE, FOLLOWS COMMANDS, ORIENTED TO SELF ONLY. RESPONDS INAPPROPRIATELY AT TIMES, ANXIOUS, RESTLESS AT OTHERS. O2 4L NC IN PLACE. 16 FR LOVE CATH TO BEDSIDE DRAINAGE. ASSESSMENT COMPLETED, SEE FLOW SHEET. CALLBELL REVIEWED AND WITHIN REACH. WHITE BOARD UP-DATED.
[2018-09-06 20:45] LABS: HEMATOCRIT 24.6 % (36-48)
--- NOTE | 2018-09-06 23:30 | NUR ---
ASSESSMENT PT IN BED WATCHING TV. PT AWAKE, FOLLOWS COMMANDS, ORIENTED TO SELF ONLY. RESPONDS INAPPROPRIATELY AT TIMES, ANXIOUS, PARANOID, RESTLESS AT OTHERS. O2 5L NC IN PLACE. 16 FR LOVE CATH TO BEDSIDE DRAINAGE. ASSESSMENT COMPLETED, SEE FLOW SHEET. CHANG REVIEWED AND WITHIN REACH. WHITE BOARD UP-DATED.
[2018-09-07] VITALS (24 sets, daily range): BP systolic 102–124; BP diastolic 49–70
--- NOTE | 2018-09-07 00:45 | NUR ---
WILTON SOLIS MACHINE RIGGER MACHINE RIGGER MADE AWARE OF PT BEHAVIOR AND PT STATUS. SEE ORDERS FOR ATIVAN
[2018-09-07] MEDS ORDERED: LORAZEPAM 2 MG/ML 1 ML VIAL IVP ONE (01:00)
[2018-09-07] MEDS ORDERED: LORAZEPAM 2 MG/ML 1 ML VIAL ONE (01:00)
--- NOTE | 2018-09-07 02:15 | NUR ---
[facility] CALLED FOR UP-DATE [facility]ES CALLED, REQUESTING UP-DATE ON PT STATUS. MADE AWARE OF PT'S BEHAVIOR, MD AWARE AND MED GIVEN. ALL QUESTIONS ANSWERED.
--- NOTE | 2018-09-07 03:30 | NUR ---
ASSESSMENT PT IN BED RESTING WITH EYES CLOSED. O2 5L NC IN PLACE. 16 FR LOVE CATH TO BEDSIDE DRAINAGE. ASSESSMENT COMPLETED, SEE FLOW SHEET. CALLBELL WITHIN REACH.
[2018-09-07 03:53] LABS: BASOPHILS % (AUTO) 1.3 % (0.0-5.0); EOSINOPHILS % (AUTO) 4.6 % (0.0-8.0); HEMATOCRIT 23.2 % (36-48); LYMPHOCYTES % (AUTO) 18.9 % (21.0-51.0); MEAN CORPUSCULAR HEMOGLOBIN 30.5 pg (27.0-33.0); MEAN CORPUSCULAR HGB CONC 32.6 g/dL (32.0-36.0); MEAN CORPUSCULAR VOLUME 93.4 fL (79-99); MONOCYTES % (AUTO) 15.5 % (3.0-13.0); NEUTROPHILS % (AUTO) 59.7 % (40.0-77.0); NUCLEATED RED BLOOD CELLS 0.5 % (0.0-0.19); PLATELET COUNT (AUTO) 125 K/uL (130-400); RED BLOOD CELL COUNT(AUTO) 2.48 MIL/uL (4.00-5.50); RED CELL DISTRIBUTION WIDTH 18.1 % (11.0-15.5); WHITE BLOOD COUNT (AUTO) 15.2 K/uL (4.8-10.8)
[2018-09-07 04:05] LABS: CREATININE 0.9 mg/dL (0.5-1.5); MAGNESIUM 1.6 mg/dL (1.80-2.40); POTASSIUM 4.2 mmol/L (3.5-5.1)
[2018-09-07] MEDS: LACTULOSE 20 GM/30 ML UDCUP PO SCH ×6 (06:00→20:53)
[2018-09-07] MEDS: IPRATROPIUM/ALBUTEROL SULFATE 3 ML SOLUTION IH SCH ×4 (06:10→23:53)
[2018-09-07] MEDS: FUROSEMIDE 10 MG/ML 4ML VIAL IV SCH ×3 (06:43→21:40)
--- NOTE | 2018-09-07 07:43 | NUR ---
REPORT BEDSIDE REPORT GIVEN PRADEEP PARSK.
[2018-09-07] MEDS: PANTOPRAZOLE SODIUM 40 MG TABLET.DR PO SCH ×2 (09:00→20:52)
[2018-09-07] MEDS: RIFAXIMIN 550 MG TABLET PO SCH ×2 (09:00→20:52)
[2018-09-07] MEDS: SPIRONOLACTONE 25 MG TAB PO SCH (09:00)
[2018-09-07] MEDS: SUCRALFATE 1 GM/10 ML PO SCH ×3 (09:00→20:52)
--- NOTE | 2018-09-07 09:00 | NUR ---
SPKE TO RE DCP- STILL HOME PT AND SPOUE AT BEDSIDE; PATIENT ABLE TO SPEAK TODAY BUT SENTENCES ARE JUMBLED WITH HIGH EMOTIONAL CONTENT. SPOUSE DOES NOT SEEM WORRIE JULIAN UPSET BY THIS. SPOSUE EMPHASIZED THAT INSURANCE IS [place], PT FORM [place], MAY BE MOVING BACK THERE WITHIN THE YEAR; WILL PT NEED OXYGENON DISCHARGE? WILL LEAVE NOTES FOR NEXT CM TO RE DO THE HOME O2 EVAL CLOSER TO DC DATE
[2018-09-07] MEDS: OCTREOTIDE ACETATE 100 MCG/ML AMP SQ SCH ×3 (09:54→21:40)
[2018-09-07] MEDS ORDERED: SODIUM CHLORIDE 0.9% 250 ML IV ONE (10:46)
--- NOTE | 2018-09-07 16:31 | NUR ---
RD Follow up note Patient pulled out NGT as per RN. Patient with esophageal varices, Intermittent GI bleeding as per EMR; RD rec to consider alternative nutrition measures. Patient LBM 09/06/18. Patient monitored labs: Na 153, Cl 114, CO2 37, BUN 23, Mg 1.60, Alb 1.9. RD to continue to monitor for updated POC. Please notify RD as nutritional concerns arise. Thank you. Addendum: 09/07/18 at [address] Amended: Links added.
[2018-09-07] MEDS: MAGNESIUM 2GM PREMIX 50ML 50 ML IV PRN (17:48)
--- NOTE | 2018-09-07 18:35 | NUR ---
Patient confused. Patient pulled mayes catheter with ballon intact. Refusing to have mayes inserted.
[2018-09-07] MEDS: LORAZEPAM 2 MG/ML 1 ML VIAL IVP PRN (18:46)
--- NOTE | 2018-09-07 20:00 | NUR ---
ASSESSMENT PT IN BED WITH EYES CLOSED. PT AROUSES EASILY, CONFUSED, RESPONDS INAPPROPRIATELY TO QUESTIONS. O2 3L NC IN PLACE. ASSESSMENT COMPLETED, SEE FLOW SHEET. CALLBELL REVIEWED AND WITHIN REACH. WHITE BOARD UP-DATED.
[2018-09-07 20:27] LABS: HEMATOCRIT 24.9 % (36-48)
[2018-09-08] VITALS (26 sets, daily range): BP systolic 94–120; BP diastolic 41–75
--- NOTE | 2018-09-08 | NUR ---
ASSESSMENT PT TRYING TO GET OUT OF BED, UNCOOPERATIVE, RE-ORIENTED BUT REMAINS CONFUSED, RESPONDING INAPPROPRIATELY TO QUESTIONS. O2 3L NC IN PLACE. ASSESSMENT COMPLETED, SEE FLOW SHEET. CALLBELL REVIEWED AND WITHIN REACH.
[2018-09-08] MEDS: LORAZEPAM 2 MG/ML 1 ML VIAL IVP PRN (01:55)
[2018-09-08 04:30] LABS: MAGNESIUM 2.1 mg/dL (1.80-2.40); POTASSIUM 3.8 mmol/L (3.5-5.1)
[2018-09-08 05:59] LABS: BASOPHILS % (AUTO) 1.3 % (0.0-5.0); EOSINOPHILS % (AUTO) 4.1 % (0.0-8.0); LYMPHOCYTES % (AUTO) 17.3 % (21.0-51.0); MEAN CORPUSCULAR HEMOGLOBIN 31.3 pg (27.0-33.0); MEAN CORPUSCULAR HGB CONC 32.6 g/dL (32.0-36.0); MEAN CORPUSCULAR VOLUME 95.9 fL (79-99); MONOCYTES % (AUTO) 16.4 % (3.0-13.0); NEUTROPHILS % (AUTO) 60.9 % (40.0-77.0); NUCLEATED RED BLOOD CELLS 0.9 % (0.0-0.19); PLATELET COUNT (AUTO) 124 K/uL (130-400); RED BLOOD CELL COUNT(AUTO) 2.12 MIL/uL (4.00-5.50); RED CELL DISTRIBUTION WIDTH 16.2 % (11.0-15.5); WHITE BLOOD COUNT (AUTO) 20.3 K/uL (4.8-10.8)
[2018-09-08 06:07] LABS: HEMATOCRIT 20.3 % (36-48)
[2018-09-08] MEDS: FUROSEMIDE 10 MG/ML 4ML VIAL IV SCH ×3 (06:07→22:09)
[2018-09-08] MEDS: IPRATROPIUM/ALBUTEROL SULFATE 3 ML SOLUTION IH SCH ×4 (07:03→23:42)
[2018-09-08] MEDS ORDERED: SODIUM CHLORIDE 0.9% 500ML 500 ML IV ONE (08:06)
[2018-09-08] MEDS: RIFAXIMIN 550 MG TABLET PO SCH ×2 (09:00→20:01)
[2018-09-08] MEDS: PANTOPRAZOLE SODIUM 40 MG TABLET.DR PO SCH (09:00)
[2018-09-08] MEDS: SUCRALFATE 1 GM/10 ML PO SCH ×3 (09:00→20:01)
[2018-09-08] MEDS: SPIRONOLACTONE 25 MG TAB PO SCH (09:00)
[2018-09-08] MEDS: LACTULOSE 20 GM/30 ML UDCUP PO SCH (09:10)
--- NOTE | 2018-09-08 09:10 | NUR ---
DYSPHAGIA EVAL COMPLETE. +S/S OF ASPIRATION WITH ALL LIQUID TEXTURES. RECOMMEND NPO, ALTERNATE MEANS OF NUTRITION/HYDRATION (IV). PATIENT INFORMATION: Pt IS A 62 YEAR OLD FEMALE REFERRED FOR A BEDSIDE DYSPHAGIA EVALUATION SECONDARY TO S/P EXTUBATION 09/04/2018. Pt WITH LIMITED ATTENTION DURING EVALUATION REQUIRING CONSTANT COAXING TO PARTICIPATE. Pt IS AAOX2 AT THIS TIME. AT BEDSIDE AT THE TIME OF THE EVALUATION. PLEASE NOTE Pt PULLED OUT NG TUBE 09/06/2018 AND IS CURRENTLY WITHOUT NG TUBE. PT WITH CURRENT PROBLEM LISTS: INITIAL PRESENTATION WITH SEPSIS ON ADMISSION WITH SUSPECTED SPONTANEOUS, BACTERIAL PERITONITIS, NEWLY DIAGNOSED LIVER CIRRHOSIS WITH UNDERLYING ASCITES COULD BE SECONDARY TO PRIMARY BILIARY CHOLANGITIS, FAMILY HISTORY OF NONALCOHOLIC LIVER CIRRHOSIS, RECENT CHOLECYSTECTOMY AND SUBSEQUENT MRCP, AZOTEMIA, HISTORY OF PRIOR SMALL-BOWEL OBSTRUCTION SECONDARY TO HISTORY OF ABDOMINAL ADHESIONS, ESOPHAGEAL VARICES, STATUS POST BANDING, PERSISTENT ODYNOPHAGIA WITH ESOPHAGEAL NARROWING DISTALLY, DIVERTICULOSIS, GASTROINTESTINAL BLEEDING, INTERMITTENT, HYPERLIPIDEMIA, HYPOXEMIA, ON OXYGEN VIA NASAL CANNULA. EVALUATION: Pt PRESENTS WITH MODERATE OROPHARYNGEAL DYSPHAGIA CAUSED BY DECREASED ATTENTION, DECREASED ORAL MOTOR COORDINATION, DECREASED TONGUE BASE RETRACTION, DELAYED PHARYNGEAL RESPONSE TIME, DECREASED HYO-LARYNGEAL ELEVATION/EXCURSION, EVIDENCED BY DECREASED ROTARY MOTION DURING MASTICATION, MULTIPLE SWALLOWS, LIQUIDS CATCHING IN THROAT. RESULTING IN +S/S OF ASPIRATION OF WET VOCAL QUALITY, DELAYED COUGH RESPONSE WITH THICKENED LIQUIDS, AND THROAT CLEAR AFTER THE SWALLOW WITH PUREED TEXTURES. RECOMMENDATIONS: 1. NPO, ALTERNATE MEANS OF NUTRITION/HYDRATION (IV). 2. MBSS IS RECOMMENDED WHEN Pt IS ALERT AND COOPERATIVE/WHEN CURRENT STATUS IMPROVES. 3. DYSPHAGIA THERAPY 3-5X WEEK TO INCREASE ORAL MOTOR STRENGTH AND PHARYNGEAL SWALLOW: LTG#1: Pt WILL TOLERATE LEAST RESTRICTIVE DIET TO MEET NUTRITION/HYDRATION WITH NO S/S OF ASPIRATION. LTG#2: SKILLED EDUCATION Pt/FAMILY/STAFF STG#1: Pt WILL PARTICIPATE IN LARYNGEAL ELEVATION/EXCURSION EXERCISES WITH 80% ACCURACY. STG#2: Pt WILL PARTICIPATE IN TONGUE BASE RETRACTION EXERCISES WITH 80% ACCURACY. STG#3: Pt WILL PARTICIPATE IN ORAL MOTOR EXERCISES WITH 80% ACCURACY. STG#4: Pt WILL PARTICIPATE IN THERAPEUTIC TRIALS OF PUREED AND NECTAR-THICK LIQUIDS WITH NO S/S OF ASPIRATION. STG#5: PT WILL BE ABLE TO PARTICIPATE IN MBSS AFTER 2-4 WEEKS OF THERAPEUTIC INTERVENTION. STG#6: SKILLED EDUCATION Pt/FAMILY/STAFF. CAT SCAN TECH REVIEWED RESULTS AND RECOMMENDATIONS WITH Pt'S . CAT SCAN TECH EDUCATED ON RISKS AND CONSEQUENCES OF ASPIRATION. HE VERBALIZED UNDERSTANDING. CAT SCAN TECH TO CONTINUE FOLLOWING Pt AT THIS TIME. G-CODES SWALLOWING: [id number] Addendum: 09/08/18 at 1115 by THOMAS CARDOZA, [facility] ST Amended: Links added.
--- NOTE | 2018-09-08 09:41 | NUR ---
Dr Carballo updated on labs from the weekend and Critical care's concerns. States to transfuse as needed. No intervention at this point from him. States to call him if she has signs of bleeding.
[2018-09-08] MEDS: PANTOPRAZOLE SODIUM 80 MG in SODIUM CHLORIDE 0.9% 100 ML IV SCH ×2 (09:58→20:01)
[2018-09-08] MEDS: OCTREOTIDE ACETATE 100 MCG/ML AMP SQ SCH ×3 (10:07→20:18)
[2018-09-08] MEDS: LACTULOSE 20 GM/30 ML UDCUP PR SCH (20:19)
[2018-09-09] VITALS (24 sets, daily range): BP systolic 95–125; BP diastolic 41–69
[2018-09-09] MEDS: LORAZEPAM 2 MG/ML 1 ML VIAL IVP PRN ×2 (02:06→12:54)
[2018-09-09] MEDS: FUROSEMIDE 10 MG/ML 4ML VIAL IV SCH ×3 (05:40→22:57)
[2018-09-09] MEDS: PANTOPRAZOLE SODIUM 80 MG in SODIUM CHLORIDE 0.9% 100 ML IV SCH (05:40)
[2018-09-09] MEDS: IPRATROPIUM/ALBUTEROL SULFATE 3 ML SOLUTION IH SCH ×3 (06:41→18:51)
[2018-09-09 07:36] LABS: HEMATOCRIT 23.9 % (36-48); MEAN CORPUSCULAR HEMOGLOBIN 31.2 pg (27.0-33.0); MEAN CORPUSCULAR HGB CONC 32.6 g/dL (32.0-36.0); MEAN CORPUSCULAR VOLUME 95.6 fL (79-99); NUCLEATED RED BLOOD CELLS 0.1 % (0.0-0.19); PLATELET COUNT (AUTO) 130 K/uL (130-400); RED BLOOD CELL COUNT(AUTO) 2.49 MIL/uL (4.00-5.50); RED CELL DISTRIBUTION WIDTH 16.1 % (11.0-15.5); WHITE BLOOD COUNT (AUTO) 17.1 K/uL (4.8-10.8)
[2018-09-09 07:48] LABS: CREATININE 1.2 mg/dL (0.5-1.5); MAGNESIUM 2.1 mg/dL (1.80-2.40); PHOSPHORUS 4.7 mg/dL (2.5-4.9); POTASSIUM 3.4 mmol/L (3.5-5.1)
[2018-09-09] MEDS: SUCRALFATE 1 GM/10 ML PO SCH ×3 (09:00→21:00)
[2018-09-09] MEDS: SPIRONOLACTONE 25 MG TAB PO SCH (09:00)
[2018-09-09] MEDS: LACTULOSE 20 GM/30 ML UDCUP PR SCH (09:00)
[2018-09-09] MEDS: RIFAXIMIN 550 MG TABLET PO SCH ×2 (09:00→21:00)
[2018-09-09] MEDS: OCTREOTIDE ACETATE 100 MCG/ML AMP SQ SCH ×3 (09:51→21:00)
[2018-09-09] MEDS: DEXTROSE 5%-WATER 1,000 ML IV SCH (12:56)
--- NOTE | 2018-09-09 13:20 | NUR ---
CARE TRANSFERRED TO KASEY CARRILLO
--- NOTE | 2018-09-09 13:30 | NUR ---
ASSUMED CARE OF PT. RESTING IN BED WITH HOB AT 15 DEGREES IN LEFT SIDE-LYING POSITION. RESP.'S EVEN AND UNLABORED. VM IN PLACE AT 50%. LETHARGIC. DOBBHOFF FEEDING TUBE IN PLACE TO LEFT NARE, SECURE; CURRENTLY CLAMPED. ABD SOFT WITH (+) BOWEL SOUNDS. ADULT BRIEF IN PLACE. SCD'S REAPPLIED. BED LOW, SIDE RAILS UP X3. ROOM DOOR OPEN, VISIBLE FROM NURSE'S STATION. PT.'S SPOUSE AT BEDSIDE.
--- NOTE | 2018-09-09 13:49 | NUR ---
FOLLOW-UP. Pt WITH HIGH SODIUM TODAY, CONFUSED. Pt ON HOLD FOR RE-EVALUATION AT THIS TIME. GEM TECHNICIAN WILL ATTEMPT RE-EVALUATION AND POSSIBLE MBSS WHEN CURRENT STATUS IMPROVES. Addendum: 09/09/18 at 1351 by THOMAS CARDOZA, SPT ST Amended: Links added.
--- NOTE | 2018-09-09 15:15 | NUR ---
FREE WATER ADMINISTERED ORDERED. VITAL AF TUBE FEEDING STARTED WITH USE OF FEEDING PUMP. BED LOW, SIDE RAILS UP X3. ROOM DOOR OPEN, VISIBLE FROM NURSE'S STATION.
--- NOTE | 2018-09-09 16:15 | NUR ---
PT.'S SPOUSE AND DAUGHTER ARRIVED TO VISIT WITH PT. UPDATED ON FEEDING TUBE PLACEMENT VERIFICATION BY X-RAY AND FEEDINGS STARTED; VERBALIZED MUTUAL UNDERSTANDING. QUESTIONS ANSWERED. PT.'S SPOUSE (ALONG WITH DAUGHTER) REQUESTING TO LOOK AT PT.'S CHART; SPOUSE TO BRING IN MEDICAL P.O.A. IN AM.
--- NOTE | 2018-09-09 19:00 | NUR ---
PT. NOTED WITH WET BRIEF. CARE RENDERED AND REPOSITIONED. ROOM DOOR OPEN, VISIBLE FROM NURSE'S STATION.
[2018-09-09] MEDS ORDERED: LACTULOSE 20 GM/30 ML UDCUP NG SCH (21:00)
[2018-09-09] MEDS ORDERED: LACTULOSE 20 GM/30 ML UDCUP PR SCH (21:00)
[2018-09-09] MEDS: PANTOPRAZOLE 40 MG/VIAL IVP SCH (21:00)
[2018-09-10] VITALS (44 sets, daily range): BP systolic 96–135; BP diastolic 42–72
--- NOTE | 2018-09-10 00:50 | NUR ---
GLEN LEYVA PRICE LISTER MADE AWARE OF PT STATUS: RESP DISTRESS USING ACCESSORY MUSCLES, TACHYPNEIC, SATURATION, VS, O2 DELIVERY INCREASED FROM VM 50% TO NRB, AND FEEDS STOPPED D/T RESP STATUS. ORDERS RECEIVED AND CARRIED OUT NOW.
[2018-09-10] MEDS: IPRATROPIUM/ALBUTEROL SULFATE 3 ML SOLUTION IH SCH ×5 (01:08→23:27)
[2018-09-10] MEDS: DEXTROSE 5%-WATER 1,000 ML IV SCH ×2 (01:18→13:37)
[2018-09-10 05:28] LABS: HEMATOCRIT 25.4 % (36-48); MEAN CORPUSCULAR HEMOGLOBIN 32.8 pg (27.0-33.0); MEAN CORPUSCULAR HGB CONC 33.1 g/dL (32.0-36.0); MEAN CORPUSCULAR VOLUME 99.4 fL (79-99); NUCLEATED RED BLOOD CELLS 2.5 % (0.0-0.19); PLATELET COUNT (AUTO) 115 K/uL (130-400); RED BLOOD CELL COUNT(AUTO) 2.55 MIL/uL (4.00-5.50); RED CELL DISTRIBUTION WIDTH 16.6 % (11.0-15.5); WHITE BLOOD COUNT (AUTO) 18.1 K/uL (4.8-10.8)
[2018-09-10 05:33] LABS: CREATININE 1.4 mg/dL (0.5-1.5); POTASSIUM 3.8 mmol/L (3.5-5.1); TOTAL PROTEIN, SERUM 5.6 g/dL (6.0-8.3)
[2018-09-10] MEDS: FUROSEMIDE 10 MG/ML 4ML VIAL IV SCH ×3 (06:11→21:57)
--- NOTE | 2018-09-10 06:15 | NUR ---
UPDATED GLEN LEYVA CT MANAGER OF PT STATUS INCLUDING STABLE VS'S, FEEDS CONTINUE TO BE STOPPED D/T EARLIER RESP DISTRESS, PT STILL ON BIPAP, AND CRITICAL AMMONIA RESULT =78. ORDER RECEIVED.
[2018-09-10] MEDS: OCTREOTIDE ACETATE 100 MCG/ML AMP SQ SCH ×3 (08:08→21:49)
[2018-09-10] MEDS: SUCRALFATE 1 GM/10 ML PO SCH ×3 (08:08→21:49)
[2018-09-10] MEDS: SPIRONOLACTONE 25 MG TAB PO SCH (08:08)
[2018-09-10] MEDS: RIFAXIMIN 550 MG TABLET PO SCH ×2 (08:08→21:49)
[2018-09-10] MEDS: POTASSIUM CHLORIDE 10% ELIXIR 20 MEQ/15 ML UDCUP PO PRN ×2 (08:47→14:56)
[2018-09-10] MEDS ORDERED: LACTULOSE 20 GM/30 ML UDCUP PO SCH (09:00)
[2018-09-10] MEDS: PANTOPRAZOLE 40 MG/VIAL IVP SCH ×2 (09:49→21:49)
--- NOTE | 2018-09-10 10:05 | NUR ---
FOLLOW-UP COMPLETED. Pt ON BIPAP AT THIS TIME. Pt WITH DUBHOFF IN PLACE. RE-EVALUATION AND TREATMENT NOT COMPLETED AT THIS TIME. Pt WITH DIFFICULTY FOLLOWING COMMANDS AT THIS TIME. HOLD TREATMENT/RE-EVAL. COAL GRADER COORDINATED CARE WITH NURSE HAINES. NURSE HAINES VERBALIZED REQUEST FOR HOLD. COAL GRADER TO CONTINUE TO FOLLOW Pt. Addendum: 09/10/18 at [address] Amended: Links added.
--- NOTE | 2018-09-10 14:15 | NUR ---
RD Follow up note Patient with Dobhoff placement. Patient with respiratory distress upon initiating feedings. Feedings held at this time. RD to continue to follow. Patient LBM 09/06/18. Patient monitored labs: Na 157, Cl 116, CO2 37, BUN 51, GFR 41, Glu 143, T. Bili 4.0, AST 78, NH3 78, Alb 2.0. RD to continue to monitor for updated POC. Please notify RD as nutritional concerns arise. Thank you. Addendum: 09/10/18 at [address] Amended: Links added.
[2018-09-10 14:37] LABS: BASOPHILS % (AUTO) 0.8 % (0.0-5.0); EOSINOPHILS % (AUTO) 0.9 % (0.0-8.0); HEMATOCRIT 23.9 % (36-48); LYMPHOCYTES % (AUTO) 21.4 % (21.0-51.0); MEAN CORPUSCULAR HEMOGLOBIN 33.4 pg (27.0-33.0); MEAN CORPUSCULAR VOLUME 98.3 fL (79-99); NEUTROPHILS % (AUTO) 65.9 % (40.0-77.0); NUCLEATED RED BLOOD CELLS 1.4 % (0.0-0.19); PLATELET COUNT (AUTO) 119 K/uL (130-400); RED BLOOD CELL COUNT(AUTO) 2.44 MIL/uL (4.00-5.50); WHITE BLOOD COUNT (AUTO) 17.4 K/uL (4.8-10.8)
[2018-09-10 14:54] LABS: INR 1.53 (0.85-1.15); PARTIAL THROMBOPLASTIN TIME 32.7 SEC (26.3-35.5); PROTHROMBIN TIME 15.9 SEC (9.6-11.6)
--- NOTE | 2018-09-10 16:15 | NUR ---
[facility] CONSULT PATIENT DOES NOT PRESENT WITH ANY OPEN WOUNDS OR SKIN BREAKDOWN PER FLOOR NURSE; NO [facility] RECOMMENDATIONS REQUIRED AT THIS TIME. Addendum: 09/10/18 at 1617 by AROLDO STEWART LVN Amended: Links added.
[2018-09-10] MEDS: LACTULOSE 20 GM/30 ML UDCUP PO SCH ×2 (17:45→23:55)
--- NOTE | 2018-09-10 20:15 | NUR ---
ASSESSMENT PT RESTING IN BED, PT AND DAUGHTER AT BEDSIDE. PT LETHARGIC, WITHDRAWS FROM TACTILE STIMULI, DOES NOT RESPOND VERBALLY, DOES NOT FOLLOW COMMANDS. BIPAP SETTINGS: 12/6-40%, BACK UP RR 14. DUBHOFF TUBE IN PLACE, FEEDING IN PLACE AT 50ML/H TOLERATING WITHOUT DIFFICULTY. SCD IN PLACE. CALLBELL REVIEWED AND WITHIN REACH, WHITE BOARD UP-DATED. ASSESSMENT COMPLETED, SEE FLOW SHEET.
--- NOTE | 2018-09-10 23:15 | NUR ---
ASSESSMENT PT RESTING IN BED WITH EYES CLOSED. PT LETHARGIC, WITHDRAWS FROM TACTILE STIMULI, DOES NOT RESPOND VERBALLY, DOES NOT FOLLOW COMMANDS. BIPAP SETTINGS: 12/6-40%, BACK UP RR 14. DUBHOFF TUBE IN PLACE, FEEDING IN PLACE AT 50ML/H TOLERATING WITHOUT DIFFICULTY. SCD IN PLACE. CALLBELL WITHIN REACH. ASSESSMENT COMPLETED, SEE FLOW SHEET.
[2018-09-11] VITALS (22 sets, daily range): BP systolic 119–149; BP diastolic 57–98
[2018-09-11] MEDS: DEXTROSE 5%-WATER 1,000 ML IV SCH ×2 (00:34→17:19)
[2018-09-11 04:23] LABS: BASOPHILS % (AUTO) 0.3 % (0.0-5.0); EOSINOPHILS % (AUTO) 0.9 % (0.0-8.0); HEMATOCRIT 23.7 % (36-48); LYMPHOCYTES % (AUTO) 13.7 % (21.0-51.0); MEAN CORPUSCULAR HGB CONC 32.5 g/dL (32.0-36.0); MEAN CORPUSCULAR VOLUME 98.7 fL (79-99); MONOCYTES % (AUTO) 8.3 % (3.0-13.0); NEUTROPHILS % (AUTO) 76.8 % (40.0-77.0); NUCLEATED RED BLOOD CELLS 2.5 % (0.0-0.19); PLATELET COUNT (AUTO) 128 K/uL (130-400); RED CELL DISTRIBUTION WIDTH 16.3 % (11.0-15.5); WHITE BLOOD COUNT (AUTO) 15.9 K/uL (4.8-10.8)
[2018-09-11 04:31] LABS: INR 1.52 (0.85-1.15); PARTIAL THROMBOPLASTIN TIME 33.2 SEC (26.3-35.5); PROTHROMBIN TIME 15.8 SEC (9.6-11.6)
[2018-09-11 04:37] LABS: CREATININE 1.4 mg/dL (0.5-1.5); MAGNESIUM 2.2 mg/dL (1.80-2.40)
[2018-09-11 04:40] LABS: ABG BASE EXCESS 7.3 mmol/L (-2.0-3.0); ABG HCO3 30.8 mmol/L (21.0-28.0); ABG OXYGEN SATURATION 94.8 % (95.0-99.0); ABG PCO2 39 mmHg (32-45)
[2018-09-11 04:49] LABS: B-TYPE NATRIURETIC PEPTIDE 87 pg/mL (0-100)
[2018-09-11] MEDS: LACTULOSE 20 GM/30 ML UDCUP PO SCH ×3 (05:55→18:42)
[2018-09-11] MEDS: FUROSEMIDE 10 MG/ML 4ML VIAL IV SCH ×3 (05:56→22:19)
[2018-09-11] MEDS: POTASSIUM CHLORIDE 10% ELIXIR 20 MEQ/15 ML UDCUP PO PRN ×3 (05:58→14:29)
[2018-09-11] MEDS: IPRATROPIUM/ALBUTEROL SULFATE 3 ML SOLUTION IH SCH ×4 (06:22→23:21)
--- NOTE | 2018-09-11 08:08 | NUR ---
HOLD. Pt CURRENTLY ON BIPAP. SUPERVISOR PARKING LOT COORDINATED CARE WITH NURSE BECKMAN. NURSE REPORTS PT CONTINUES TO REQUIRE BIPAP CONSTANTLY AND IS AT HIGH RISK FOR ASPIRATION IF FED BY MOUTH. SUPERVISOR PARKING LOT WILL CONTINUE TO FOLLOW Pt AND RE-EVALUATE WHEN CURRENT STATUS IMPROVES AND Pt IS ABLE TO BE OFF OF THE BIPAP. Addendum: 09/11/18 at 0812 by THOMAS CARDOZA [facility] ST Amended: Links added.
[2018-09-11] MEDS: RIFAXIMIN 550 MG TABLET PO SCH ×2 (09:19→22:02)
[2018-09-11] MEDS: PANTOPRAZOLE 40 MG/VIAL IVP SCH ×2 (09:19→22:01)
[2018-09-11] MEDS: SUCRALFATE 1 GM/10 ML PO SCH ×3 (09:19→22:01)
[2018-09-11] MEDS: OCTREOTIDE ACETATE 100 MCG/ML AMP SQ SCH ×3 (09:19→22:02)
[2018-09-11] MEDS: SPIRONOLACTONE 25 MG TAB PO SCH (09:19)
[2018-09-11] MEDS ORDERED: SODIUM CHLORIDE 0.9% 250 ML IV ONE (10:55)
[2018-09-11] MEDS ORDERED: FENTANYL CITRATE PF 50 MCG/1 ML 2ML VIAL IVP SCH (11:45)
[2018-09-11] MEDS: LEVOFLOXACIN 500 MG/D5W 100 ML 100 ML IV SCH (14:29)
--- NOTE | 2018-09-11 16:42 | NUR ---
DC PLAN VISITED WITH PATIENT. PATIENT DAUGHTER AT BEDSIDE. PATIENT IS CONFUSED. UNABLE TO TOLERATE BEING WITH OUT BIPAP. APPEARS RESTLESS. LABS STILL CRITICAL. WILL CONTINUE TO FOLLOW. Addendum: 09/11/18 at 1644 by ANI OLSON RN CM Amended: Links added.
--- NOTE | 2018-09-11 20:00 | NUR ---
ASSESSMENT PT RESTING IN BED, PT AND DAUGHTER AT BEDSIDE. PT LETHARGIC, WITHDRAWS FROM TACTILE STIMULI, DOES NOT RESPOND VERBALLY, DOES NOT FOLLOW COMMANDS. PT ON AEROSOL MASK, R.T. MADE AWARE OF NEED TO RETURN TO BIPAP. BIPAP SETTINGS: 12/6-40% BACK UP RR 14. DUBHOFF TUBE IN PLACE, FEEDING IN PLACE AT 50ML/H TOLERATING WITHOUT DIFFICULTY. SCD IN PLACE. CALLBELL REVIEWED AND WITHIN REACH, WHITE BOARD UP-DATED. ASSESSMENT COMPLETED, SEE FLOW SHEET.
--- NOTE | 2018-09-11 23:30 | NUR ---
ASSESSMENT PT RESTING IN BED WITH EYES CLOSED. PT LETHARGIC, WITHDRAWS FROM TACTILE STIMULI, DOES NOT RESPOND VERBALLY, DOES NOT FOLLOW COMMANDS. BIPAP SETTINGS: 12/6-40%, BACK UP RR 14, PT REMAINS TACYPNEIC. DUBHOFF TUBE IN PLACE, FEEDING IN PLACE AT 50ML/H TOLERATING WITHOUT DIFFICULTY. SCD IN PLACE. CALLBELL WITHIN REACH. ASSESSMENT COMPLETED, SEE FLOW SHEET.
[2018-09-12] VITALS (51 sets, daily range): BP systolic 50–145; BP diastolic 20–88
[2018-09-12] MEDS: LACTULOSE 20 GM/30 ML UDCUP PO SCH ×3 (00:53→11:43)
[2018-09-12 01:09] LABS: ABG BASE EXCESS 5.2 mmol/L (-2.0-3.0); ABG OXYGEN SATURATION 81.4 % (95.0-99.0); ABG PCO2 35 mmHg (32-45)
[2018-09-12] MEDS: DEXTROSE 5%-WATER 1,000 ML IV SCH (02:44)
--- NOTE | 2018-09-12 02:45 | NUR ---
TACHYPNEIC 0107: PT REMAINS TACHYPNEIC, ABG DONE, [employer] SALES COORDINATOR MADE AWARE OF ABG RESULTS, ORDERS RECEIVED FOR ER MD TO INTUBATED PT. 0135: ER MD MADE AWARE OF REQUEST TO INTUBATE PT. 0145: [facility] MADE AWARE OF PT STATUS. 0150: DR. DOMINGO INTO INTUBATED PT 0155: ETOMIDATE 20MG IVP GIVEN 0158: ROCURONIUM 50MG IVP GIVEN 0206: ROCURONIUM 50MG IVP GIVEN 0211: PT INTUBATED, VENT SETTING AC-100%-16-450- PEEP 5, ABG 30 MIN POST INTUBATED AND PCXR FOR TUBE PLACEMENT. 0213: PCXR DONE 0218: ETT ADVANCED, REPEAT PCXR 0225: ETT ADVANCED, REPEAT PCXR 0240: ETT ADVANCED, REPEAT PCXR
--- NOTE | 2018-09-12 03:32 | NUR ---
[facility] COMMUNITY DEVELOPMENT MANAGER COMMUNITY DEVELOPMENT MANAGER MADE AWARE OF ABG AT 0332, ORDERS RECEIVED FOR 1 AMP NA HCO3, INCREASE RR, KEEP FIO2 AT 100%, REPEAT ABG AT 0800
[2018-09-12 03:35] LABS: ABG BASE EXCESS 2.8 mmol/L (-2.0-3.0); ABG HCO3 30.4 mmol/L (21.0-28.0); ABG OXYGEN SATURATION 82.4 % (95.0-99.0); ABG PCO2 63 mmHg (32-45)
[2018-09-12] MEDS ORDERED: SODIUM BICARB 50MEQ 50ML VIAL IV ONE (04:15)
[2018-09-12 04:16] LABS: BASOPHILS % (AUTO) 0.1 % (0.0-5.0); CORRECTED WHITE BLOOD COUNT 3.9 K/uL (4.5-11.0); EOSINOPHILS % (AUTO) 0.2 % (0.0-8.0); HEMATOCRIT 26.2 % (36-48); LYMPHOCYTES % (AUTO) 4.4 % (21.0-51.0); MEAN CORPUSCULAR HEMOGLOBIN 33.2 pg (27.0-33.0); MEAN CORPUSCULAR HGB CONC 33.4 g/dL (32.0-36.0); MEAN CORPUSCULAR VOLUME 99.4 fL (79-99); MONOCYTES % (AUTO) 1.7 % (3.0-13.0); NEUTROPHILS % (AUTO) 93.6 % (40.0-77.0); NUCLEATED RED BLOOD CELLS 31.2 % (0.0-0.19); PLATELET COUNT (AUTO) 63 K/uL (130-400); RED BLOOD CELL COUNT(AUTO) 2.64 MIL/uL (4.00-5.50); RED CELL DISTRIBUTION WIDTH 18.5 % (11.0-15.5); WHITE BLOOD COUNT (AUTO) 5.1 K/uL (4.8-10.8)
[2018-09-12] MEDS ORDERED: SODIUM BICARB 50MEQ 50ML VIAL ONE ×2 (04:19→08:03)
[2018-09-12 04:33] LABS: ALBUMIN 1.6 g/dL (3.5-5.0); BILIRUBIN,TOTAL 3.5 mg/dL (0.2-1.0); CREATININE 1.5 mg/dL (0.5-1.5); TOTAL PROTEIN, SERUM 5.3 g/dL (6.0-8.3)
[2018-09-12 04:35] LABS: POTASSIUM 2.2 mmol/L (3.5-5.1)
[2018-09-12 04:48] LABS: B-TYPE NATRIURETIC PEPTIDE 301 pg/mL (0-100)
[2018-09-12] MEDS: POTASSIUM CHLORIDE 10% ELIXIR 20 MEQ/15 ML UDCUP PO PRN ×2 (05:11→06:58)
[2018-09-12] MEDS: FUROSEMIDE 10 MG/ML 4ML VIAL IV SCH (05:17)
[2018-09-12] MEDS ORDERED: NOREPINEPHRINE BITARTRATE 1 MG/1 ML ML IV ONE (05:19)
[2018-09-12] MEDS ORDERED: SODIUM CHLORIDE 0.9% 250 ML IV ONE (05:20)
[2018-09-12 05:21] LABS: BAND NEUTROPHILS % (MANUAL) 30 % (0-2); EOSINOPHILS % (MANUAL) 1 % (1-6); LYMPHOCYTES % (MANUAL) 1 % (22-44); MAN.DIFF COMMENT-IMPRESSION MANUAL DIFFERENTIAL; METAMYELOCYTES % 3 % (0-0); SEGMENTED NEUTROPHILS % 65 % (40-70)
[2018-09-12 05:23] LABS: PLATELET MORPHOLOGY COMMENT SLIGHTLY DECREASED
--- NOTE | 2018-09-12 05:42 | NUR ---
CODE PT IN PEA, CODE CALLED, CPR STARTED, SEE CODE SHEET.
--- NOTE | 2018-09-12 05:45 | NUR ---
LEYVA BOX SORTER CALL PLACED TO LEYVA BOX SORTER, RETURN CALL PENDING
[2018-09-12] MEDS ORDERED: SODIUM CHLORIDE 0.9% 1000ML 1,000 ML IV ONE (05:52)
[2018-09-12 05:56] LABS: ABG BASE EXCESS 0.5 mmol/L (-2.0-3.0); ABG HCO3 27.6 mmol/L (21.0-28.0); ABG OXYGEN SATURATION 98.5 % (95.0-99.0); ABG PCO2 58 mmHg (32-45)
--- NOTE | 2018-09-12 06:00 | NUR ---
[employer] ANSWERING SERVICE CALLED PLACED FOR PENDING RETURN CALL FROM [employer] GRANDA/
--- NOTE | 2018-09-12 06:00 | NUR ---
DR DOMINGO ORDERS RECEIVED EKG, ABG AND REPEAT PCXR
--- NOTE | 2018-09-12 06:08 | NUR ---
DR Mc ANDRE MADE AWARE OF PT HISTORY, STATUS , PAST MEDICAL HISTORY. SEE ORDERS
--- NOTE | 2018-09-12 06:33 | NUR ---
CALL PLACED TO FAMILY CALL PLACED TO FAMILY RE: CHANGE IN PT CONDITION, NO ANSWER, MESSAGE LEFT TO PLEASE CALL CHRISTINA AT [facility] AT [phone]. RETURN CALL PENDING
[2018-09-12 06:44] LABS: ALBUMIN 1.6 g/dL (3.5-5.0); BILIRUBIN,TOTAL 3.5 mg/dL (0.2-1.0); CREATININE 1.8 mg/dL (0.5-1.5); TOTAL PROTEIN, SERUM 5.4 g/dL (6.0-8.3); TROPONIN I 0.13 ng/mL (0.00-0.06)
[2018-09-12 06:55] LABS: POTASSIUM 2.7 mmol/L (3.5-5.1)
--- NOTE | 2018-09-12 06:55 | NUR ---
KCL KCL LEVEL 2.7, PT ON KCL PROTOCOL
--- NOTE | 2018-09-12 07:00 | NUR ---
FAMILY NO RETURN CALL FROM FAMILY.
--- NOTE | 2018-09-12 07:00 | NUR ---
RECEIVING REPORT AT BEDSIDE FROM SKIDWAY MAN RN. PATIENT INTUBATED, LEVOPHED IV INFUSING. SBP 60-70S. PUPILS 6MM, NON REACTIVE TO LIGHT, PATIENT DOES NOT RESPOND TO PAINFUL STIMULATION. HR 130S.
[2018-09-12] MEDS: IPRATROPIUM/ALBUTEROL SULFATE 3 ML SOLUTION IH SCH ×2 (07:15→11:10)
--- NOTE | 2018-09-12 07:20 | NUR ---
INFORMED DR. PÉREZ ABOUT PATIENT LABS AND STATUS. OBTAINED ORDERS FOR FLUID THERAPY, VASOPRESSORS, AND LABS, SEE CHART ORDERS.
[2018-09-12] MEDS ORDERED: VASOPRESSIN 20 UNITS in DEXTROSE 5%-WATER 50 ML IV PRN (07:30)
[2018-09-12] MEDS ORDERED: ALBUMIN (HUMAN) 5% 500 ML IV SCH (07:30)
[2018-09-12] MEDS ORDERED: EPINEPHRINE 8 MG in SODIUM CHLORIDE 0.9% 250 ML IV PRN (07:30)
[2018-09-12 07:56] LABS: ABG BASE EXCESS -8.6 mmol/L (-2.0-3.0); ABG HCO3 18.6 mmol/L (21.0-28.0); ABG OXYGEN SATURATION 82.6 % (95.0-99.0); ABG PCO2 45 mmHg (32-45)
--- NOTE | 2018-09-12 08:14 | NUR ---
FOLLOW-UP COMPLETED. Pt INTUBATED THIS AM AND IS CURRENTLY INTUBATED. DISCHARGE FROM SKILLED SPEECH THERAPY AT THIS TIME. RE-EVALUATION WILL BE WARRANTED 24HOURS STATUS POST EXTUBATION. MBSS IS RECOMMENDED PRIOR TO INITIATION OF P.O. DIET. Addendum: 09/12/18 at 0819 by THOMAS CARDOZA, [facility] ST Amended: Links added.
[2018-09-12] MEDS ORDERED: SODIUM BICARB 50MEQ 50ML VIAL IV SCH ×2 (08:15→11:45)
[2018-09-12] MEDS ORDERED: SODIUM BICARB 8.4% 50ML SYRING 150 MEQ in DEXTROSE 5%-WATER 1,000 ML IV STA (08:22)
[2018-09-12] MEDS ORDERED: PHARMACY COMMUNICATION MISC STA (08:22)
[2018-09-12 08:23] LABS: BASOPHILS % (AUTO) 0.2 % (0.0-5.0); EOSINOPHILS % (AUTO) 0.2 % (0.0-8.0); HEMATOCRIT 26.3 % (36-48); LYMPHOCYTES % (AUTO) 6.3 % (21.0-51.0); MEAN CORPUSCULAR HEMOGLOBIN 32.3 pg (27.0-33.0); MEAN CORPUSCULAR HGB CONC 32.8 g/dL (32.0-36.0); MEAN CORPUSCULAR VOLUME 98.3 fL (79-99); MONOCYTES % (AUTO) 2.5 % (3.0-13.0); NEUTROPHILS % (AUTO) 90.8 % (40.0-77.0); NUCLEATED RED BLOOD CELLS 28.1 % (0.0-0.19); PLATELET COUNT (AUTO) 58 K/uL (130-400); RED BLOOD CELL COUNT(AUTO) 2.68 MIL/uL (4.00-5.50); RED CELL DISTRIBUTION WIDTH 17.4 % (11.0-15.5); WHITE BLOOD COUNT (AUTO) 11.5 K/uL (4.8-10.8)
[2018-09-12] MEDS: POTASSIUM CHLORIDE 20MEQ/100ML 100 ML IV PRN ×2 (08:27→09:32)
[2018-09-12] MEDS ORDERED: MEROPENEM 1 GM VIAL IVP SCH ×2 (08:30→12:00)
[2018-09-12] MEDS ORDERED: FENTANYL 2500MCG+NS 250ML 250 ML IV PRN (08:30)
[2018-09-12] MEDS: NOREPINEPHRINE 4MG/NS 250ML 250 ML IV SCH ×2 (08:37→12:41)
[2018-09-12] MEDS: PANTOPRAZOLE 40 MG/VIAL IVP SCH (08:41)
[2018-09-12] MEDS: SUCRALFATE 1 GM/10 ML PO SCH ×2 (08:41→14:00)
[2018-09-12] MEDS: OCTREOTIDE ACETATE 100 MCG/ML AMP SQ SCH ×2 (08:41→14:17)
[2018-09-12] MEDS: HYDROCORTISONE SOD SUCCINATE 100 MG/2 ML VIAL IV SCH ×2 (08:42→16:22)
[2018-09-12] MEDS: RIFAXIMIN 550 MG TABLET PO SCH (08:44)
[2018-09-12] MEDS ORDERED: VANCOMYCIN PROTOCOL PER PHARMACY IV SCH (08:45)
[2018-09-12 08:55] LABS: POTASSIUM 2.5 mmol/L (3.5-5.1)
[2018-09-12] MEDS ORDERED: VANCOMYCIN 1GM+NS 250ML 250 ML IV SCH (09:00)
[2018-09-12 09:23] LABS: INR 2.33 (0.85-1.15); PROTHROMBIN TIME 24.1 SEC (9.6-11.6)
[2018-09-12 09:23] LABS: ALBUMIN 1.5 g/dL (3.5-5.0); BILIRUBIN,TOTAL 3.2 mg/dL (0.2-1.0); TOTAL PROTEIN, SERUM 4.7 g/dL (6.0-8.3)
[2018-09-12] MEDS: ARTIFICAL TEARS SOL 15 ML OU SCH ×2 (09:28→14:17)
[2018-09-12 09:54] LABS: BASOPHILS % (AUTO) 0.2 % (0.0-5.0); CORRECTED WHITE BLOOD COUNT 8.6 K/uL (4.5-11.0); EOSINOPHILS % (AUTO) 0.2 % (0.0-8.0); HEMATOCRIT 27.6 % (36-48); MEAN CORPUSCULAR HEMOGLOBIN 32.2 pg (27.0-33.0); MEAN CORPUSCULAR HGB CONC 32.2 g/dL (32.0-36.0); MEAN CORPUSCULAR VOLUME 100.2 fL (79-99); MONOCYTES % (AUTO) 2.1 % (3.0-13.0); NEUTROPHILS % (AUTO) 88.5 % (40.0-77.0); NUCLEATED RED BLOOD CELLS 25.2 % (0.0-0.19); PLATELET COUNT (AUTO) 58 K/uL (130-400); RED BLOOD CELL COUNT(AUTO) 2.75 MIL/uL (4.00-5.50); RED CELL DISTRIBUTION WIDTH 18.8 % (11.0-15.5); WHITE BLOOD COUNT (AUTO) 10.8 K/uL (4.8-10.8)
--- NOTE | 2018-09-12 11:00 | NUR ---
HAS ARRIVED AT BEDSIDE. INFORMED OF PATIENT CURRENT STATUS. OBTAINED CONSENT FOR CENTRAL LINE PLACEMENT.
[2018-09-12 11:24] LABS: ABG BASE EXCESS -11.3 mmol/L (-2.0-3.0); ABG HCO3 17.9 mmol/L (21.0-28.0); ABG PCO2 53 mmHg (32-45)
--- NOTE | 2018-09-12 11:35 | NUR ---
Nutrition f/u: Pt currently NPO s/p code. As per pt's nurse, no plans to resume feedings and Dobbhoff currently clogged. LBM 09/11. Pt continues intubated and ventilated. Recommendations: When medically feasible, resume feedings. RD to continue monitoring pt's nutritional status, however please consult RD as additional nutrition concerns arise. Addendum: 09/12/18 at [address] Amended: Links added.
[2018-09-12] MEDS ORDERED: DEXTROSE 50%-WATER 50 ML DISP.SYRIN IV ONE (11:45)
[2018-09-12] MEDS: LEVOFLOXACIN 500 MG/D5W 100 ML 100 ML IV SCH (11:51)
[2018-09-12] MEDS: MAGNESIUM 2GM PREMIX 50ML 50 ML IV PRN (11:56)
[2018-09-12] MEDS ORDERED: DEXTROSE 50%-WATER 50 ML DISP.SYRIN IV SCH (12:00)
[2018-09-12] MEDS ORDERED: VASOPRESSIN 20 UNITS in SODIUM CHLORIDE 0.9% 50 ML IV PRN (14:00)
[2018-09-12] MEDS ORDERED: ALBUMIN (HUMAN) 25% 100 ML IV SCH (14:30)
[2018-09-12 15:18] LABS: BASOPHILS % (AUTO) 0.1 % (0.0-5.0); CORRECTED WHITE BLOOD COUNT 14.6 K/uL (4.5-11.0); EOSINOPHILS % (AUTO) 10.1 % (0.0-8.0); HEMATOCRIT 26.4 % (36-48); LYMPHOCYTES % (AUTO) 3.1 % (21.0-51.0); MEAN CORPUSCULAR HEMOGLOBIN 32.3 pg (27.0-33.0); MEAN CORPUSCULAR VOLUME 104.1 fL (79-99); MONOCYTES % (AUTO) 4.6 % (3.0-13.0); NEUTROPHILS % (AUTO) 82.1 % (40.0-77.0); NUCLEATED RED BLOOD CELLS 11.2 % (0.0-0.19); PLATELET COUNT (AUTO) 42 K/uL (130-400); RED BLOOD CELL COUNT(AUTO) 2.54 MIL/uL (4.00-5.50); RED CELL DISTRIBUTION WIDTH 19.8 % (11.0-15.5); WHITE BLOOD COUNT (AUTO) 16.2 K/uL (4.8-10.8)
[2018-09-12 15:30] LABS: ALBUMIN 1.6 g/dL (3.5-5.0); BILIRUBIN,TOTAL 4.1 mg/dL (0.2-1.0); CREATININE 2.9 mg/dL (0.5-1.5); POTASSIUM 3.7 mmol/L (3.5-5.1)
--- NOTE | 2018-09-12 15:57 | NUR ---
INFORMED DR. PÉREZ THAT FAMILY MEMBERS HAVE SIGNED WITHDRAWL OF CARE PAPERS. GAVE ORDERS, SEE CHART.
[2018-09-12] MEDS ORDERED: MORPHINE SULFATE 10 MG/ML 1ML SYG IVP PRN (16:15)
[2018-09-12] MEDS ORDERED: LORAZEPAM 2 MG/ML 1 ML VIAL IVP PRN (16:15)
[2018-09-12] MEDS ORDERED: MORPHINE SULFATE 2 MG/ML 1ML SYG IVP PRN (16:22)
[2018-09-12] MEDS ORDERED: ACETAMINOPHEN 325 MG TAB PO PRN (16:30)
--- NOTE | 2018-09-12 16:50 | NUR ---
PATIENT HAS BEEN EXTUBATED. ALL IV MEDICATIONS HAVE BEEN DISCONTINUED.
--- NOTE | 2018-09-12 17:01 | NUR ---
PATIENT HAS . FAMILY IS AWARE, NOTIFIED, PRIVATE INQUIRY AGENT NOTIFIED, LENNY NOTIFIED.
--- NOTE | 2018-09-12 17:15 | NUR ---
EMOTIONAL SUPPORT SW met with pt's and daughter Margo. Family has decided to withdraw life support. FAmily given list of homes to review and select. Sw present when life support withdrawn, emotional support provided.
--- NOTE | 2018-09-12 18:40 | NUR ---
DR. PÉREZ HAS AGREED TO SIGN THE CERTIFICATE SHARYN PENA.
== END 2018-09-12 17:01 | disposition expired | DRG 853 ==
LOC: EDH 18:30 → EDHIP 21:13 → 4BH 22:09 → 2BH 09-01 16:13
PROVIDERS: ADMIT Internal Medicine Critical Care Medicine; ATTEND Internal Medicine Critical Care Medicine
PROC: 0W9G3ZZ Drainage of Peritoneal Cavity, Percutaneous Approach (ICD-10-PCS; 2018-08-22)
PROC: 06L38CZ Occlusion of Esophageal Vein with Extraluminal Device, Via Natural or Artificial Opening Endoscopic (ICD-10-PCS; 2018-08-24)
PROC: 0DBP8ZZ Excision of Rectum, Via Natural or Artificial Opening Endoscopic (ICD-10-PCS; 2018-08-25)
PROC: 0DBN8ZZ Excision of Sigmoid Colon, Via Natural or Artificial Opening Endoscopic (ICD-10-PCS; 2018-08-25)
PROC: 5A1945Z Respiratory Ventilation, 24-96 Consecutive Hours (ICD-10-PCS; 2018-09-01)
PROC: 0BH17EZ Insertion of Endotracheal Airway into Trachea, Via Natural or Artificial Opening (ICD-10-PCS; 2018-09-01)
PROC: 0DJ08ZZ Inspection of Upper Intestinal Tract, Via Natural or Artificial Opening Endoscopic (ICD-10-PCS; 2018-09-01)
PROC: 06183J4 Bypass Portal Vein to Hepatic Vein with Synthetic Substitute, Percutaneous Approach (ICD-10-PCS; principal; 2018-09-02)
PROC: 5A09357 Assistance with Respiratory Ventilation, Less than 24 Consecutive Hours, Continuous Positive Airway Pressure (ICD-10-PCS; 2018-09-04)
PROC: 0DH67UZ Insertion of Feeding Device into Stomach, Via Natural or Artificial Opening (ICD-10-PCS; 2018-09-09)
PROC: 5A09457 Assistance with Respiratory Ventilation, 24-96 Consecutive Hours, Continuous Positive Airway Pressure (ICD-10-PCS; 2018-09-10)
PROC: 02HV33Z Insertion of Infusion Device into Superior Vena Cava, Percutaneous Approach (ICD-10-PCS; 2018-09-12)
PROC: 30233K1 Transfusion of Nonautologous Frozen Plasma into Peripheral Vein, Percutaneous Approach (ICD-10-PCS; 2018-09-12)
PROC: 30233N1 Transfusion of Nonautologous Red Blood Cells into Peripheral Vein, Percutaneous Approach (ICD-10-PCS; 2018-09-12)
PROC: 5A1935Z Respiratory Ventilation, Less than 24 Consecutive Hours (ICD-10-PCS; 2018-09-12)
DX: A41.9 Sepsis, unspecified organism (principal); J96.91 Respiratory failure, unspecified with hypoxia; K25.4 Chronic or unspecified gastric ulcer with hemorrhage; R18.8 Other ascites; D68.4 Acquired coagulation factor deficiency; J81.1 Chronic pulmonary edema; I85.00 Esophageal varices without bleeding; K76.6 Portal hypertension; C16.9 Malignant neoplasm of stomach, unspecified; E27.40 Unspecified adrenocortical insufficiency; E87.0 Hyperosmolality and hypernatremia; E87.2 Acidosis; G45.9 Transient cerebral ischemic attack, unspecified; G93.1 Anoxic brain damage, not elsewhere classified; I50.30 Unspecified diastolic (congestive) heart failure; I85.10 Secondary esophageal varices without bleeding; K80.30 Calculus of bile duct with cholangitis, unspecified, without obstruction; B96.89 Other specified bacterial agents as the cause of diseases classified elsewhere; K74.60 Unspecified cirrhosis of liver; K57.90 Diverticulosis of intestine, part unspecified, without perforation or abscess without bleeding; D69.6 Thrombocytopenia, unspecified; E78.5 Hyperlipidemia, unspecified; I46.9 Cardiac arrest, cause unspecified; K57.30 Diverticulosis of large intestine without perforation or abscess without bleeding; K63.5 Polyp of colon; K72.90 Hepatic failure, unspecified without coma; K80.70 Calculus of gallbladder and bile duct without cholecystitis without obstruction; L29.9 Pruritus, unspecified; K64.0 First degree hemorrhoids; K58.9 Irritable bowel syndrome, unspecified; K62.1 Rectal polyp; D12.5 Benign neoplasm of sigmoid colon; K31.89 Other diseases of stomach and duodenum; N28.9 Disorder of kidney and ureter, unspecified; R13.10 Dysphagia, unspecified; Z74.01 Bed confinement status; Z90.81 Acquired absence of spleen; Z90.710 Acquired absence of both cervix and uterus; Z90.49 Acquired absence of other specified parts of digestive tract; Z82.49 Family history of ischemic heart disease and other diseases of the circulatory system; Z88.0 Allergy status to penicillin; Z87.19 Personal history of other diseases of the digestive system; Z86.73 Personal history of transient ischemic attack (TIA), and cerebral infarction without residual deficits; Z82.3 Family history of stroke
CPT/HCPCS: 31500; 36415; 36430; 36600; 37182; 43235; 43244; 45380; 45385; 49083; 71045; 71275; 74018; 74176; 74220; 74270; 76705; 80048; 80053; 80061; 80074; 81001; 82040; 82042; 82105; 82140; 82150; 82435; 82550; 82728; 82803; 82947; 82948; 83516; 83540; 83550; 83605; 83690; 83735; 83874; 83880; 84100; 84132; 84157; 84295; 84484; 85014; 85018; 85025; 85027; 85378; 85610; 85730; 86038; 86215; 86235; 86701; 86850; 86900; 86901; 86922; 86927; 87040; 87071; 87077; 87088; 87186; 87205; 87390; 88108; 88305; 89051; 92610; 92950; 93005; 93306; 93970; 94002; 94003; 94640; 94660; 94664; 94760; 97039; A4218; A4344; A9579; B4081; C1725; C1751; C1769; C9113; G0378; J0171; J1644; J1720; J1940; J1956; J2060; J2185; J2250; J2270; J2354; J2405; J2704; J2710; J3010; J3370; J3430; J3475; J3480; J3490; J7030; J7040; J7060; J7070; P9012; P9016; P9017; P9045; P9046; P9047; Q9967